=== PATIENT | male | born 1955 | race Asian ===

== ENCOUNTER 2019-06-06 18:07 | Inpatient (IN) | payer MEDICAID ==
[~2019-06-06] VITALS: Ht 172.7 cm; Wt 75.7 kg
[2019-06-06] MEDS ORDERED: SODIUM CHLORIDE 0.9% 1000ML BAG (SEPSIS BOLUS) IV ONE (18:30)
[2019-06-06] MEDS ORDERED: VANCOMYCIN 1 G PREMIX 200 ML IV ONE (18:30)
[2019-06-06] MEDS ORDERED: PIPERACILLIN/TAZ 3.375G PREMIX 50 ML IV ONE (18:30)
[2019-06-06 18:46] LABS: BASOPHILS % 0.5 % (0.0-2.0); EOSINOPHILS % 0.1 % (0.0-5.0); HEMATOCRIT. 45.5 % (42.0-52.0); HEMOGLOBIN. 14.8 g/dL (14.0-18.0); LYMPHOCYTES % 7.3 % (20.0-50.0); MEAN CORPUSCULAR HEMOGLOBIN 29.9 pg (28.0-32.0); MEAN CORPUSCULAR VOLUME 91.7 fL (80.0-94.0); MONOCYTES % 9.6 % (2.0-8.0); NEUTROPHILS % 82.5 % (40.0-76.0); PLATELET 340 x1000/uL (130-400); RED BLOOD CELL COUNT 4.97 mill/uL (4.7-6.1); RED CELL DISTRIBUTION WIDTH 14.9 % (11.6-14.6)
[2019-06-06 18:52] LABS: CHLORIDE 106 mEq/L (98-107)
[2019-06-06 18:54] LABS: PROTHROMBIN TIME 10.6 sec (9.6-11.0)
[2019-06-06 20:17] LABS: CLARITY URINE CLEAR (CLEAR); COLOR URINE DARK YELLOW (YELLOW); KETONES URINE 1+ (NEGATIVE); LEUKOCYTE ESTERASE URINE TRACE (NEGATIVE); NITRITE URINE NEGATIVE (NEGATIVE); OCCULT BLOOD URINE TRACE (NEGATIVE); PH URINE 5.5 (4.5-8.0); PROTEIN URINE 1+ (NEGATIVE); SPECIFIC GRAVITY URINE 1.027 (1.005-1.030)
[2019-06-06 20:51] LABS: BG BASE EXCESS -1.5 mmol/L (-2.0-2.0); BG BILEVEL POS AIRWAY PRESSURE 15/5; BG CARBOXYHEMOGLOBIN 0.8 % (0.5-1.5); BG DEOXYHEMOGLOBIN 5.7 % (0.0-5.0); BG FRACTION INSPIRED OXYGEN 50; BG HCO3 ACT 27.1 mmol/L (22.0-26.0); BG METHEMOGLOBIN 0.5 % (0.0-1.5); BG OXYGEN SATURATION 94.2 % (92.0-98.5); BG PCO2 63.1 mmHg (35.0-45.0); BG PH 7.251 (7.350-7.450); BG PO2 77.4 mmHg (75.0-100.0); BG SAMPLE SITE RIGHT BRACHIAL; BG TOTAL HEMOGLOBIN 14.5 g/dL (12.0-18.0); BG VENT MODE MASK - BIPAP; BG VENT RATE 12 set
[2019-06-06 22:03] LABS: BG BASE EXCESS -3.2 mmol/L (-2.0-2.0); BG BILEVEL POS AIRWAY PRESSURE 18/5; BG CARBOXYHEMOGLOBIN 0.9 % (0.5-1.5); BG DEOXYHEMOGLOBIN 1.8 % (0.0-5.0); BG FRACTION INSPIRED OXYGEN 60; BG HCO3 ACT 25.6 mmol/L (22.0-26.0); BG METHEMOGLOBIN 0.4 % (0.0-1.5); BG OXYGEN SATURATION 98.2 % (92.0-98.5); BG OXYHEMOGLOBIN 96.9 % (94.0-97.0); BG PH 7.226 (7.350-7.450); BG PO2 130.9 mmHg (75.0-100.0); BG SAMPLE SITE RIGHT RADIAL; BG TOTAL HEMOGLOBIN 13.7 g/dL (12.0-18.0); BG VENT MODE MASK - BIPAP; BG VENT RATE 18 set
[2019-06-07] VITALS (57 sets, daily range): BP systolic 74–187; BP diastolic 45–95
[2019-06-07] MEDS ORDERED: IOHEXOL-350 100 ML BOTTLE ONE (03:03)
[2019-06-07] MEDS ORDERED: ONDANSETRON HCL 4MG/2ML INJ IV PRN (08:30)
[2019-06-07] MEDS ORDERED: NOREPINEPHRINE 32 MG in DEXT 5% WATER 468 ML IV PRN (10:00)
[2019-06-07 10:08] LABS: BG CARBOXYHEMOGLOBIN 0.5 % (0.5-1.5); BG DEOXYHEMOGLOBIN 0.3 % (0.0-5.0); BG FRACTION INSPIRED OXYGEN 100; BG HCO3 ACT 26.1 mmol/L (22.0-26.0); BG METHEMOGLOBIN 0.5 % (0.0-1.5); BG OXYGEN SATURATION 99.7 % (92.0-98.5); BG OXYHEMOGLOBIN 98.7 % (94.0-97.0); BG PCO2 53.1 mmHg (35.0-45.0); BG PH 7.309 (7.350-7.450); BG PO2 505.7 mmHg (75.0-100.0); BG SAMPLE SITE RIGHT BRACHIAL; BG TIDAL VOLUME(mL) 500 mL; BG TOTAL HEMOGLOBIN 13.9 g/dL (12.0-18.0); BG VENT MODE VENT - A/C; BG VENT RATE 16 set
[2019-06-07] MEDS: PROPOFOL 10MG/ML 100ML 100 ML IV PRN ×2 (10:47→18:06)
[2019-06-07 11:25] LABS: *AMPHETAMINES SCREEN URINE NEGATIVE (NEGATIVE); *BARBITURATES SCREEN URINE NEGATIVE (NEGATIVE); *BENZODIAZEPINES SCREEN URINE NEGATIVE (NEGATIVE); *COCAINE SCREEN URINE NEGATIVE (NEGATIVE)
[2019-06-07 11:26] LABS: CANNABINOID URINE SCREEN NEGATIVE (NEGATIVE); METHADONE URINE SCREEN PRESUMTIVE POSITIVE (NEGATIVE); OPIATES URINE SCREEN NEGATIVE (NEGATIVE); PHENCYCLIDINE URINE SCREEN NEGATIVE (NEGATIVE)
[2019-06-07] MEDS: DEXT 5%/0.45% NACL 1000ML 1,000 ML IV SCH ×2 (11:44→22:29)
[2019-06-07] MEDS: FAMOTIDINE 20MG/2ML VIAL IV SCH (11:45)
[2019-06-07] MEDS: ENOXAPARIN 80MG/0.8ML SYR SUBCUT SCH ×2 (11:45→21:19)
[2019-06-07] MEDS: VANCOMYCIN 1 G PREMIX 200 ML IV SCH ×2 (11:45→22:29)
[2019-06-07] MEDS: ACETYLCYSTEINE 100MG/ML 10% VIAL 4ML INH SCH ×2 (12:08→23:58)
[2019-06-07] MEDS: IPRATROPIUM/ALBUTEROL 0.5-3(2.5)MG/3ML NEB HHN SCH ×4 (12:09→23:57)
[2019-06-07] MEDS: PIPERACILLIN/TAZOBACTAM 3.375 G in DEXT 5% WATER 100 ML IV SCH ×2 (12:23→17:53)
[2019-06-07] MEDS: AZITHROMYCIN 500 MG in DEXT 5% WATER 250 ML IV SCH (12:23)
[2019-06-07] MEDS ORDERED: LIDOCAINE HCL 1% 20ML VIAL (Pyxis) INJ ONE (13:04)
[2019-06-07 13:52] LABS: HEPATITIS B SURFACE ANTIGEN NEGATIVE
[2019-06-07 14:22] LABS: HEPATITIS A AB IGM NEGATIVE (NEGATIVE)
[2019-06-08] VITALS (99 sets, daily range): BP systolic 74–169; BP diastolic 26–95
[2019-06-08] MEDS: PIPERACILLIN/TAZOBACTAM 3.375 G in DEXT 5% WATER 100 ML IV SCH ×4 (00:01→20:56)
[2019-06-08] MEDS: PROPOFOL 10MG/ML 100ML 100 ML IV PRN ×4 (01:22→18:06)
[2019-06-08] MEDS: IPRATROPIUM/ALBUTEROL 0.5-3(2.5)MG/3ML NEB HHN SCH ×5 (03:56→20:29)
[2019-06-08 06:11] LABS: BASOPHILS % 0.1 % (0.0-2.0); EOSINOPHILS % 1.1 % (0.0-5.0); HEMATOCRIT. 36.8 % (42.0-52.0); HEMOGLOBIN. 12.1 g/dL (14.0-18.0); LYMPHOCYTES % 11.1 % (20.0-50.0); MEAN CORPUSCULAR HEMOGLOBIN 30.3 pg (28.0-32.0); MEAN CORPUSCULAR VOLUME 92.3 fL (80.0-94.0); MONOCYTES % 9.8 % (2.0-8.0); NEUTROPHILS % 77.9 % (40.0-76.0); PLATELET 230 x1000/uL (130-400); RED BLOOD CELL COUNT 3.98 mill/uL (4.7-6.1); RED CELL DISTRIBUTION WIDTH 14.8 % (11.6-14.6)
[2019-06-08 06:12] LABS: CHLORIDE 108 mEq/L (98-107)
[2019-06-08] MEDS: FAMOTIDINE 20MG/2ML VIAL IV SCH (08:02)
[2019-06-08] MEDS: ENOXAPARIN 80MG/0.8ML SYR SUBCUT SCH ×2 (08:03→21:31)
[2019-06-08] MEDS: ACETYLCYSTEINE 100MG/ML 10% VIAL 4ML INH SCH ×2 (08:24→16:19)
[2019-06-08 09:16] LABS: BG BASE EXCESS 1.7 mmol/L (-2.0-2.0); BG CARBOXYHEMOGLOBIN 0.5 % (0.5-1.5); BG DEOXYHEMOGLOBIN 1.1 % (0.0-5.0); BG FRACTION INSPIRED OXYGEN 40; BG HCO3 ACT 25.1 mmol/L (22.0-26.0); BG METHEMOGLOBIN 0.2 % (0.0-1.5); BG OXYGEN SATURATION 98.9 % (92.0-98.5); BG OXYHEMOGLOBIN 98.2 % (94.0-97.0); BG PCO2 35.4 mmHg (35.0-45.0); BG PH 7.468 (7.350-7.450); BG PO2 135.9 mmHg (75.0-100.0); BG SAMPLE SITE RIGHT RADIAL; BG TIDAL VOLUME(mL) 500 mL; BG TOTAL HEMOGLOBIN 12.4 g/dL (12.0-18.0); BG VENT MODE VENT - A/C; BG VENT RATE 18 set
[2019-06-08] MEDS: VANCOMYCIN 1 G PREMIX 200 ML IV SCH ×2 (11:08→23:02)
[2019-06-08] MEDS ORDERED: HYDROCODONE/ACETAMINOPHEN 5/325MG TABLET PO PRN (11:45)
[2019-06-08] MEDS: AZITHROMYCIN 500 MG in DEXT 5% WATER 250 ML IV SCH (12:34)
[2019-06-08] MEDS: DEXT 5%/0.45% NACL 1000ML 1,000 ML IV SCH (12:35)
[2019-06-08] MEDS: MIDODRINE HCL 5MG TABLET PO SCH ×2 (12:35→18:13)
[2019-06-08] MEDS ORDERED: POTASSIUM CHLORIDE INJ 40 MEQ in DEXT 5% WATER 250 ML IV NR (13:00)
[2019-06-08] MEDS: SODIUM CHLORIDE 3% FOR INH 4ML UD NEB INH SCH ×2 (14:00→18:00)
[2019-06-09] VITALS (79 sets, daily range): BP systolic 80–196; BP diastolic 40–140
[2019-06-09] MEDS: PROPOFOL 10MG/ML 100ML 100 ML IV PRN ×3 (00:03→22:55)
[2019-06-09] MEDS: IPRATROPIUM/ALBUTEROL 0.5-3(2.5)MG/3ML NEB HHN SCH ×6 (00:28→20:26)
[2019-06-09] MEDS: ACETYLCYSTEINE 100MG/ML 10% VIAL 4ML INH SCH ×2 (00:28→08:57)
[2019-06-09] MEDS: DEXT 5%/0.45% NACL 1000ML 1,000 ML IV SCH ×2 (05:28→15:05)
[2019-06-09] MEDS: PIPERACILLIN/TAZOBACTAM 3.375 G in DEXT 5% WATER 100 ML IV SCH (05:36)
[2019-06-09 05:51] LABS: CHLORIDE 108 mEq/L (98-107)
[2019-06-09 05:52] LABS: HEMATOCRIT. 35.4 % (42.0-52.0); HEMOGLOBIN. 11.9 g/dL (14.0-18.0); MEAN CORPUSCULAR HEMOGLOBIN 30.3 pg (28.0-32.0); MEAN CORPUSCULAR VOLUME 90.1 fL (80.0-94.0); MEAN PLATELET VOLUME 7.9 fl (7.4-10.4); PLATELET 227 x1000/uL (130-400); RED BLOOD CELL COUNT 3.93 mill/uL (4.7-6.1); RED CELL DISTRIBUTION WIDTH 14.7 % (11.6-14.6)
[2019-06-09] MEDS ORDERED: POTASSIUM CHLORIDE INJ 40 MEQ in DEXT 5% WATER 500 ML IV ONE (06:15)
[2019-06-09 08:07] LABS: BG BASE EXCESS 1.8 mmol/L (-2.0-2.0); BG CARBOXYHEMOGLOBIN 0.9 % (0.5-1.5); BG DEOXYHEMOGLOBIN 1.5 % (0.0-5.0); BG HCO3 ACT 26.7 mmol/L (22.0-26.0); BG METHEMOGLOBIN 0.7 % (0.0-1.5); BG OXYGEN SATURATION 98.5 % (92.0-98.5); BG OXYHEMOGLOBIN 96.9 % (94.0-97.0); BG PH 7.411 (7.350-7.450); BG PO2 119.4 mmHg (75.0-100.0); BG SAMPLE SITE RIGHT BRACHIAL; BG TIDAL VOLUME(mL) 500 mL; BG VENT MODE VENT - A/C; BG VENT RATE 14 set
[2019-06-09 09:10] LABS: PLATELET ESTIMATE NORMAL
[2019-06-09] MEDS: FAMOTIDINE 20MG/2ML VIAL IV SCH (09:20)
[2019-06-09] MEDS: MIDODRINE HCL 5MG TABLET PO SCH ×3 (09:21→17:35)
[2019-06-09] MEDS: ENOXAPARIN 80MG/0.8ML SYR SUBCUT SCH ×2 (09:21→21:10)
[2019-06-09] MEDS ORDERED: POTASSIUM CHLORIDE 20MEQ TABLET SR PO SCH (10:45)
[2019-06-09] MEDS: VANCOMYCIN 1 G PREMIX 200 ML IV SCH ×2 (11:00→22:54)
[2019-06-09] MEDS: AZITHROMYCIN 500 MG in DEXT 5% WATER 250 ML IV SCH (12:00)
[2019-06-09] MEDS: MORPHINE SULFATE 2 MG/ML CPJ (NOT FOR IM USE) IV PRN (14:09)
[2019-06-10] VITALS (96 sets, daily range): BP systolic 82–177; BP diastolic 51–89
[2019-06-10] MEDS: ACETYLCYSTEINE 100MG/ML 10% VIAL 4ML INH SCH ×2 (00:19→08:48)
[2019-06-10] MEDS: IPRATROPIUM/ALBUTEROL 0.5-3(2.5)MG/3ML NEB HHN SCH ×6 (00:19→20:10)
[2019-06-10] MEDS: DEXT 5%/0.45% NACL 1000ML 1,000 ML IV SCH ×2 (04:20→18:09)
[2019-06-10] MEDS: PIPERACILLIN/TAZOBACTAM 3.375 G in DEXT 5% WATER 100 ML IV SCH ×5 (05:09→18:09)
[2019-06-10] MEDS: PROPOFOL 10MG/ML 100ML 100 ML IV PRN ×3 (05:22→19:40)
[2019-06-10 05:50] LABS: HEMATOCRIT. 38.6 % (42.0-52.0); HEMOGLOBIN. 12.7 g/dL (14.0-18.0); MEAN CORPUSCULAR VOLUME 91.1 fL (80.0-94.0); MEAN PLATELET VOLUME 8.1 fl (7.4-10.4); PLATELET 227 x1000/uL (130-400); RED BLOOD CELL COUNT 4.23 mill/uL (4.7-6.1)
[2019-06-10 07:41] LABS: BG BASE EXCESS -1.4 mmol/L (-2.0-2.0); BG CARBOXYHEMOGLOBIN 0.1 % (0.5-1.5); BG DEOXYHEMOGLOBIN 1.8 % (0.0-5.0); BG HCO3 ACT 23.9 mmol/L (22.0-26.0); BG METHEMOGLOBIN 0.3 % (0.0-1.5); BG OXYGEN SATURATION 98.2 % (92.0-98.5); BG OXYHEMOGLOBIN 97.8 % (94.0-97.0); BG PCO2 42.6 mmHg (35.0-45.0); BG PH 7.367 (7.350-7.450); BG PO2 121.3 mmHg (75.0-100.0); BG SAMPLE SITE RIGHT BRACHIAL; BG TIDAL VOLUME(mL) 500 mL; BG TOTAL HEMOGLOBIN 13.2 g/dL (12.0-18.0); BG VENT MODE VENT - A/C; BG VENT RATE 14 set
[2019-06-10 08:04] LABS: CHLORIDE 109 mEq/L (98-107)
[2019-06-10] MEDS: MIDODRINE HCL 5MG TABLET PO SCH ×3 (09:51→17:00)
[2019-06-10] MEDS: ENOXAPARIN 80MG/0.8ML SYR SUBCUT SCH ×2 (09:51→20:51)
[2019-06-10] MEDS: FAMOTIDINE 20MG/2ML VIAL IV SCH (09:51)
[2019-06-10 10:43] LABS: PLATELET ESTIMATE NORMAL
[2019-06-10] MEDS: VANCOMYCIN 1 G PREMIX 200 ML IV SCH ×2 (11:05→22:14)
[2019-06-10] MEDS ORDERED: POTASSIUM CHLORIDE 20MEQ TABLET SR PO SCH (12:00)
[2019-06-10] MEDS: AZITHROMYCIN 500 MG in DEXT 5% WATER 250 ML IV SCH (12:10)
[2019-06-11] VITALS (95 sets, daily range): BP systolic 83–175; BP diastolic 52–144
[2019-06-11] MEDS: PIPERACILLIN/TAZOBACTAM 3.375 G in DEXT 5% WATER 100 ML IV SCH ×4 (00:04→18:04)
[2019-06-11] MEDS: IPRATROPIUM/ALBUTEROL 0.5-3(2.5)MG/3ML NEB HHN SCH ×6 (00:09→20:21)
[2019-06-11] MEDS: ACETYLCYSTEINE 100MG/ML 10% VIAL 4ML INH SCH ×3 (00:09→16:04)
[2019-06-11] MEDS: PROPOFOL 10MG/ML 100ML 100 ML IV PRN ×3 (04:16→23:12)
[2019-06-11 05:49] LABS: BASOPHILS % 0.2 % (0.0-2.0); EOSINOPHILS % 2.5 % (0.0-5.0); HEMATOCRIT. 37.8 % (42.0-52.0); HEMOGLOBIN. 12.6 g/dL (14.0-18.0); LYMPHOCYTES % 12.8 % (20.0-50.0); MEAN CORPUSCULAR HEMOGLOBIN 30.2 pg (28.0-32.0); MEAN CORPUSCULAR VOLUME 90.8 fL (80.0-94.0); MEAN PLATELET VOLUME 7.9 fl (7.4-10.4); MONOCYTES % 13.3 % (2.0-8.0); NEUTROPHILS % 71.2 % (40.0-76.0); PLATELET 231 x1000/uL (130-400); RED BLOOD CELL COUNT 4.17 mill/uL (4.7-6.1); RED CELL DISTRIBUTION WIDTH 15.3 % (11.6-14.6)
[2019-06-11 05:55] LABS: CHLORIDE 109 mEq/L (98-107)
[2019-06-11 08:03] LABS: BG BASE EXCESS -1.8 mmol/L (-2.0-2.0); BG CARBOXYHEMOGLOBIN 0.1 % (0.5-1.5); BG DEOXYHEMOGLOBIN 1.5 % (0.0-5.0); BG FRACTION INSPIRED OXYGEN 40; BG HCO3 ACT 23.8 mmol/L (22.0-26.0); BG METHEMOGLOBIN 0.4 % (0.0-1.5); BG OXYGEN SATURATION 98.5 % (92.0-98.5); BG PCO2 43.9 mmHg (35.0-45.0); BG PH 7.352 (7.350-7.450); BG PO2 132.5 mmHg (75.0-100.0); BG SAMPLE SITE RIGHT RADIAL; BG TIDAL VOLUME(mL) 500 mL; BG TOTAL HEMOGLOBIN 12.7 g/dL (12.0-18.0); BG VENT MODE VENT - A/C; BG VENT RATE 14 set
[2019-06-11] MEDS: FAMOTIDINE 20MG/2ML VIAL IV SCH (08:41)
[2019-06-11] MEDS: ENOXAPARIN 80MG/0.8ML SYR SUBCUT SCH ×2 (08:41→20:52)
[2019-06-11] MEDS: MIDODRINE HCL 5MG TABLET PO SCH (08:41)
[2019-06-11] MEDS: VANCOMYCIN 1 G PREMIX 200 ML IV SCH ×2 (10:09→23:04)
[2019-06-11] MEDS: MORPHINE SULFATE 2 MG/ML CPJ (NOT FOR IM USE) IV PRN (10:10)
[2019-06-11] MEDS: DEXT 5%/0.45% NACL 1000ML 1,000 ML IV SCH ×2 (10:10→14:04)
[2019-06-11] MEDS ORDERED: POTASSIUM CHLORIDE 20MEQ TABLET SR PO NR (10:15)
[2019-06-11] MEDS: QUETIAPINE FUMARATE 25MG TABLET NG SCH ×2 (12:29→18:04)
[2019-06-11] MEDS: AZITHROMYCIN 500 MG in DEXT 5% WATER 250 ML IV SCH (12:31)
[2019-06-12] VITALS (88 sets, daily range): BP systolic 94–178; BP diastolic 57–97
[2019-06-12] MEDS: PIPERACILLIN/TAZOBACTAM 3.375 G in DEXT 5% WATER 100 ML IV SCH ×5 (00:32→23:48)
[2019-06-12] MEDS: IPRATROPIUM/ALBUTEROL 0.5-3(2.5)MG/3ML NEB HHN SCH ×5 (00:53→21:11)
[2019-06-12] MEDS: ACETYLCYSTEINE 100MG/ML 10% VIAL 4ML INH SCH ×3 (00:53→21:15)
[2019-06-12] MEDS: PROPOFOL 10MG/ML 100ML 100 ML IV PRN (05:45)
[2019-06-12 07:53] LABS: HIV SCREEN 4G Non Reactive (Non Reactive)
[2019-06-12 08:54] LABS: BASOPHILS % 0.4 % (0.0-2.0); EOSINOPHILS % 3.3 % (0.0-5.0); HEMATOCRIT. 35.5 % (42.0-52.0); HEMOGLOBIN. 11.9 g/dL (14.0-18.0); LYMPHOCYTES % 14.1 % (20.0-50.0); MEAN CORPUSCULAR HEMOGLOBIN 30.3 pg (28.0-32.0); MEAN CORPUSCULAR VOLUME 90.3 fL (80.0-94.0); MEAN PLATELET VOLUME 8.1 fl (7.4-10.4); MONOCYTES % 13.2 % (2.0-8.0); PLATELET 223 x1000/uL (130-400); RED BLOOD CELL COUNT 3.93 mill/uL (4.7-6.1); RED CELL DISTRIBUTION WIDTH 15.2 % (11.6-14.6)
[2019-06-12 08:55] LABS: CHLORIDE 112 mEq/L (98-107)
[2019-06-12] MEDS: FAMOTIDINE 20MG/2ML VIAL IV SCH (09:00)
[2019-06-12] MEDS: QUETIAPINE FUMARATE 25MG TABLET NG SCH ×2 (09:00→18:20)
[2019-06-12] MEDS: ENOXAPARIN 80MG/0.8ML SYR SUBCUT SCH ×2 (09:00→20:29)
[2019-06-12] MEDS ORDERED: POTASSIUM CHLORIDE 20MEQ TABLET SR PO SCH (09:15)
[2019-06-12 09:26] LABS: BG BASE EXCESS 1.5 mmol/L (-2.0-2.0); BG CARBOXYHEMOGLOBIN 0.5 % (0.5-1.5); BG DEOXYHEMOGLOBIN 2.5 % (0.0-5.0); BG FRACTION INSPIRED OXYGEN 30; BG HCO3 ACT 26.7 mmol/L (22.0-26.0); BG METHEMOGLOBIN 0.2 % (0.0-1.5); BG OXYGEN SATURATION 97.5 % (92.0-98.5); BG OXYHEMOGLOBIN 96.8 % (94.0-97.0); BG PCO2 44.4 mmHg (35.0-45.0); BG PH 7.397 (7.350-7.450); BG PO2 100.9 mmHg (75.0-100.0); BG SAMPLE SITE RIGHT RADIAL; BG TIDAL VOLUME(mL) 500 mL; BG TOTAL HEMOGLOBIN 12.7 g/dL (12.0-18.0); BG VENT MODE VENT - A/C; BG VENT RATE 14 set
[2019-06-12] MEDS: VANCOMYCIN 1 G PREMIX 200 ML IV SCH ×2 (11:29→22:23)
[2019-06-12] MEDS: AZITHROMYCIN 500 MG in DEXT 5% WATER 250 ML IV SCH (12:16)
[2019-06-12 13:05] LABS: BG BASE EXCESS 2.9 mmol/L (-2.0-2.0); BG CARBOXYHEMOGLOBIN 0.4 % (0.5-1.5); BG DEOXYHEMOGLOBIN 4.9 % (0.0-5.0); BG FRACTION INSPIRED OXYGEN 30; BG METHEMOGLOBIN 0.3 % (0.0-1.5); BG OXYGEN SATURATION 95.1 % (92.0-98.5); BG OXYHEMOGLOBIN 94.4 % (94.0-97.0); BG PCO2 45.1 mmHg (35.0-45.0); BG PH 7.411 (7.350-7.450); BG PO2 74.7 mmHg (75.0-100.0); BG PRESSURE SUPPORT 8; BG SAMPLE SITE RIGHT RADIAL; BG TOTAL HEMOGLOBIN 12.9 g/dL (12.0-18.0); BG VENT MODE VENT - CPAP
[2019-06-12] MEDS ORDERED: MORPHINE SULFATE 2 MG/ML CPJ (NOT FOR IM USE) IV PRN (14:30)
[2019-06-12] MEDS: LORAZEPAM 2MG/ML CPJ IV PRN ×2 (16:05→22:43)
[2019-06-12] MEDS: DEXT 5%/0.45% NACL 1000ML 1,000 ML IV SCH ×2 (16:06→22:23)
[2019-06-13] VITALS (35 sets, daily range): BP systolic 109–177; BP diastolic 69–105
[2019-06-13] MEDS: IPRATROPIUM/ALBUTEROL 0.5-3(2.5)MG/3ML NEB HHN SCH ×5 (00:48→20:58)
[2019-06-13] MEDS: CLONIDINE 0.1MG TABLET NG PRN ×2 (04:44→10:32)
[2019-06-13 05:35] LABS: CHLORIDE 108 mEq/L (98-107)
[2019-06-13 05:36] LABS: BASOPHILS % 0.7 % (0.0-2.0); EOSINOPHILS % 3.4 % (0.0-5.0); HEMATOCRIT. 38.1 % (42.0-52.0); HEMOGLOBIN. 12.7 g/dL (14.0-18.0); LYMPHOCYTES % 15.4 % (20.0-50.0); MEAN CORPUSCULAR VOLUME 90.3 fL (80.0-94.0); MEAN PLATELET VOLUME 7.9 fl (7.4-10.4); NEUTROPHILS % 67.5 % (40.0-76.0); PLATELET 213 x1000/uL (130-400); RED BLOOD CELL COUNT 4.21 mill/uL (4.7-6.1); RED CELL DISTRIBUTION WIDTH 15.3 % (11.6-14.6)
[2019-06-13] MEDS: PIPERACILLIN/TAZOBACTAM 3.375 G in DEXT 5% WATER 100 ML IV SCH ×3 (05:40→17:25)
[2019-06-13 05:43] LABS: PHOSPHORUS 3.4 mg/dL (2.5-4.9)
[2019-06-13] MEDS: DOCUSATE SODIUM 250MG CAPSULE PO SCH (09:00)
[2019-06-13] MEDS: FAMOTIDINE 20MG/2ML VIAL IV SCH (09:09)
[2019-06-13] MEDS: ENOXAPARIN 80MG/0.8ML SYR SUBCUT SCH ×2 (09:10→21:50)
[2019-06-13] MEDS: QUETIAPINE FUMARATE 25MG TABLET NG SCH ×2 (10:33→17:26)
[2019-06-13] MEDS ORDERED: POTASSIUM CHLORIDE 20MEQ/PACKET PO SCH (11:00)
[2019-06-13] MEDS: SODIUM CHLORIDE 3% FOR INH 4ML UD NEB INH SCH ×2 (12:00→18:00)
[2019-06-13] MEDS ORDERED: METH-611 PO (12:18)
[2019-06-13] MEDS: DEXT 5%/0.45% NACL 1000ML 1,000 ML IV SCH (12:25)
[2019-06-13] MEDS: ACETYLCYSTEINE 100MG/ML 10% VIAL 4ML INH SCH (12:30)
[2019-06-13] MEDS: AZITHROMYCIN 500 MG in DEXT 5% WATER 250 ML IV SCH (12:34)
[2019-06-13] MEDS: VANCOMYCIN 1 G PREMIX 200 ML IV SCH ×2 (12:43→23:42)
[2019-06-13] MEDS: LORAZEPAM 2MG/ML CPJ IV PRN (19:46)
[2019-06-14] VITALS (26 sets, daily range): BP systolic 77–164; BP diastolic 46–117
[2019-06-14] MEDS: ACETYLCYSTEINE 100MG/ML 10% VIAL 4ML INH SCH ×2 (00:23→09:17)
[2019-06-14] MEDS: IPRATROPIUM/ALBUTEROL 0.5-3(2.5)MG/3ML NEB HHN SCH ×7 (00:23→20:40)
[2019-06-14] MEDS: PIPERACILLIN/TAZOBACTAM 3.375 G in DEXT 5% WATER 100 ML IV SCH ×4 (00:30→17:42)
[2019-06-14] MEDS: DEXT 5%/0.45% NACL 1000ML 1,000 ML IV SCH ×2 (01:02→14:00)
[2019-06-14] MEDS: SODIUM CHLORIDE 3% FOR INH 4ML UD NEB INH SCH (04:20)
[2019-06-14] MEDS: LORAZEPAM 2MG/ML CPJ IV PRN ×2 (04:57→08:40)
[2019-06-14 05:06] LABS: BASOPHILS % 0.5 % (0.0-2.0); EOSINOPHILS % 3.9 % (0.0-5.0); HEMATOCRIT. 38.2 % (42.0-52.0); HEMOGLOBIN. 12.9 g/dL (14.0-18.0); MEAN CORPUSCULAR HEMOGLOBIN 30.3 pg (28.0-32.0); MEAN CORPUSCULAR VOLUME 89.9 fL (80.0-94.0); NEUTROPHILS % 66.6 % (40.0-76.0); PLATELET 228 x1000/uL (130-400); RED BLOOD CELL COUNT 4.26 mill/uL (4.7-6.1); RED CELL DISTRIBUTION WIDTH 15.4 % (11.6-14.6)
[2019-06-14 05:14] LABS: CHLORIDE 103 mEq/L (98-107)
[2019-06-14 08:10] LABS: BG BASE EXCESS 2.8 mmol/L (-2.0-2.0); BG CARBOXYHEMOGLOBIN 0.5 % (0.5-1.5); BG DEOXYHEMOGLOBIN 2.2 % (0.0-5.0); BG FRACTION INSPIRED OXYGEN 30; BG HCO3 ACT 27.9 mmol/L (22.0-26.0); BG METHEMOGLOBIN 0.3 % (0.0-1.5); BG OXYGEN SATURATION 97.8 % (92.0-98.5); BG PCO2 44.6 mmHg (35.0-45.0); BG PH 7.414 (7.350-7.450); BG PO2 104.1 mmHg (75.0-100.0); BG PRESSURE SUPPORT 10; BG SAMPLE SITE RIGHT RADIAL; BG TIDAL VOLUME(mL) 500 mL; BG VENT MODE VENT - SIMV; BG VENT RATE 6 set
[2019-06-14] MEDS: QUETIAPINE FUMARATE 25MG TABLET NG SCH ×2 (09:09→16:10)
[2019-06-14] MEDS: FAMOTIDINE 20MG/2ML VIAL IV SCH (09:09)
[2019-06-14] MEDS: ENOXAPARIN 80MG/0.8ML SYR SUBCUT SCH ×2 (09:10→22:05)
[2019-06-14] MEDS: DOCUSATE SODIUM 250MG CAPSULE PO SCH (09:10)
[2019-06-14] MEDS: VANCOMYCIN 1 G PREMIX 200 ML IV SCH (10:36)
[2019-06-14] MEDS: AZITHROMYCIN 500 MG in DEXT 5% WATER 250 ML IV SCH (12:02)
[2019-06-14 12:58] LABS: BG CARBOXYHEMOGLOBIN 0.5 % (0.5-1.5); BG CPAP (cmH2O) 0 cm(H2O); BG DEOXYHEMOGLOBIN 1.8 % (0.0-5.0); BG HCO3 ACT 29.9 mmol/L (22.0-26.0); BG METHEMOGLOBIN 0.2 % (0.0-1.5); BG OXYGEN SATURATION 98.2 % (92.0-98.5); BG OXYHEMOGLOBIN 97.5 % (94.0-97.0); BG PCO2 50.7 mmHg (35.0-45.0); BG PH 7.389 (7.350-7.450); BG PO2 116.5 mmHg (75.0-100.0); BG SAMPLE SITE RIGHT BRACHIAL; BG TOTAL HEMOGLOBIN 12.8 g/dL (12.0-18.0); BG VENT MODE VENT - CPAP
[2019-06-14] MEDS: METHADONE HCL 10MG TABLET PO SCH (16:10)
[2019-06-15] VITALS (26 sets, daily range): BP systolic 80–153; BP diastolic 56–105
[2019-06-15] MEDS: IPRATROPIUM/ALBUTEROL 0.5-3(2.5)MG/3ML NEB HHN SCH ×6 (00:12→21:01)
[2019-06-15] MEDS: ACETYLCYSTEINE 100MG/ML 10% VIAL 4ML INH SCH ×3 (00:13→16:04)
[2019-06-15] MEDS: SODIUM CHLORIDE 3% FOR INH 4ML UD NEB INH SCH (04:11)
[2019-06-15 05:45] LABS: BASOPHILS % 0.5 % (0.0-2.0); EOSINOPHILS % 3.7 % (0.0-5.0); HEMATOCRIT. 36.1 % (42.0-52.0); HEMOGLOBIN. 12.1 g/dL (14.0-18.0); LYMPHOCYTES % 17.6 % (20.0-50.0); MEAN CORPUSCULAR HEMOGLOBIN 30.3 pg (28.0-32.0); MEAN CORPUSCULAR VOLUME 90.1 fL (80.0-94.0); MEAN PLATELET VOLUME 8.2 fl (7.4-10.4); MONOCYTES % 10.3 % (2.0-8.0); NEUTROPHILS % 67.9 % (40.0-76.0); PLATELET 244 x1000/uL (130-400); RED BLOOD CELL COUNT 4.01 mill/uL (4.7-6.1)
[2019-06-15 05:47] LABS: CHLORIDE 104 mEq/L (98-107)
[2019-06-15] MEDS: FAMOTIDINE 20MG/2ML VIAL IV SCH (08:28)
[2019-06-15] MEDS: QUETIAPINE FUMARATE 25MG TABLET NG SCH (08:28)
[2019-06-15] MEDS: DOCUSATE SODIUM SUGAR FREE 100MG/10ML UDC NG SCH (08:29)
[2019-06-15] MEDS: METHADONE HCL 10MG TABLET PO SCH (08:29)
[2019-06-15] MEDS: DEXT 5%/0.45% NACL 1000ML 1,000 ML IV SCH (08:30)
[2019-06-15] MEDS: ENOXAPARIN 80MG/0.8ML SYR SUBCUT SCH (08:30)
[2019-06-15 09:55] LABS: BG CARBOXYHEMOGLOBIN 0.7 % (0.5-1.5); BG DEOXYHEMOGLOBIN 1.6 % (0.0-5.0); BG FRACTION INSPIRED OXYGEN 50; BG HCO3 ACT 32.9 mmol/L (22.0-26.0); BG METHEMOGLOBIN 0.4 % (0.0-1.5); BG OXYGEN SATURATION 98.4 % (92.0-98.5); BG OXYHEMOGLOBIN 97.3 % (94.0-97.0); BG PCO2 64.6 mmHg (35.0-45.0); BG PH 7.325 (7.350-7.450); BG PO2 129.2 mmHg (75.0-100.0); BG SAMPLE SITE RIGHT RADIAL; BG TOTAL HEMOGLOBIN 12.9 g/dL (12.0-18.0); BG VENT MODE MASK - AEROSOL
[2019-06-16] VITALS (29 sets, daily range): BP systolic 93–163; BP diastolic 47–119
[2019-06-16] MEDS: ACETYLCYSTEINE 100MG/ML 10% VIAL 4ML INH SCH ×3 (00:40→16:06)
[2019-06-16] MEDS: IPRATROPIUM/ALBUTEROL 0.5-3(2.5)MG/3ML NEB HHN SCH ×6 (00:40→20:24)
[2019-06-16 05:29] LABS: BASOPHILS % 0.9 % (0.0-2.0); EOSINOPHILS % 3.6 % (0.0-5.0); HEMOGLOBIN. 11.7 g/dL (14.0-18.0); LYMPHOCYTES % 19.8 % (20.0-50.0); MEAN CORPUSCULAR HEMOGLOBIN 30.4 pg (28.0-32.0); MEAN PLATELET VOLUME 8.4 fl (7.4-10.4); MONOCYTES % 10.3 % (2.0-8.0); NEUTROPHILS % 65.4 % (40.0-76.0); PLATELET 257 x1000/uL (130-400); RED BLOOD CELL COUNT 3.85 mill/uL (4.7-6.1); RED CELL DISTRIBUTION WIDTH 14.9 % (11.6-14.6)
[2019-06-16 05:30] LABS: CHLORIDE 103 mEq/L (98-107)
[2019-06-16] MEDS: FAMOTIDINE 20MG/2ML VIAL IV SCH (09:51)
[2019-06-16] MEDS: SODIUM CHLORIDE 0.9% 1,000 ML IV SCH (12:30)
[2019-06-16] MEDS: METHADONE HCL 10MG TABLET PO SCH (14:44)
[2019-06-16] MEDS: LORAZEPAM 2MG/ML CPJ IV PRN ×2 (15:58→23:36)
[2019-06-16] MEDS: DOCUSATE SODIUM SUGAR FREE 100MG/10ML UDC NG SCH (15:59)
[2019-06-17] VITALS (31 sets, daily range): BP systolic 112–159; BP diastolic 58–108
[2019-06-17] MEDS: IPRATROPIUM/ALBUTEROL 0.5-3(2.5)MG/3ML NEB HHN SCH ×5 (04:20→21:21)
[2019-06-17 05:24] LABS: BASOPHILS % 0.6 % (0.0-2.0); EOSINOPHILS % 3.1 % (0.0-5.0); HEMATOCRIT. 35.1 % (42.0-52.0); HEMOGLOBIN. 11.7 g/dL (14.0-18.0); LYMPHOCYTES % 24.5 % (20.0-50.0); MEAN CORPUSCULAR VOLUME 90.4 fL (80.0-94.0); MEAN PLATELET VOLUME 8.1 fl (7.4-10.4); MONOCYTES % 10.8 % (2.0-8.0); PLATELET 311 x1000/uL (130-400); RED BLOOD CELL COUNT 3.89 mill/uL (4.7-6.1); RED CELL DISTRIBUTION WIDTH 14.6 % (11.6-14.6)
[2019-06-17 05:29] LABS: CHLORIDE 104 mEq/L (98-107)
[2019-06-17] MEDS: SODIUM CHLORIDE 0.9% 1,000 ML IV SCH (05:57)
[2019-06-17 08:36] LABS: BG BASE EXCESS 0.7 mmol/L (-2.0-2.0); BG CARBOXYHEMOGLOBIN 1.1 % (0.5-1.5); BG DEOXYHEMOGLOBIN 1.5 % (0.0-5.0); BG FRACTION INSPIRED OXYGEN 30; BG HCO3 ACT 27.5 mmol/L (22.0-26.0); BG METHEMOGLOBIN 0.4 % (0.0-1.5); BG OXYGEN SATURATION 98.5 % (92.0-98.5); BG PH 7.325 (7.350-7.450); BG SAMPLE SITE RIGHT RADIAL; BG TOTAL HEMOGLOBIN 12.2 g/dL (12.0-18.0); BG VENT MODE NASAL CANNULA
[2019-06-17] MEDS: ACETYLCYSTEINE 100MG/ML 10% VIAL 4ML INH SCH ×2 (08:38→15:53)
[2019-06-17] MEDS: FAMOTIDINE 20MG/2ML VIAL IV SCH (08:54)
[2019-06-17] MEDS: DOCUSATE SODIUM SUGAR FREE 100MG/10ML UDC NG SCH (09:00)
[2019-06-17] MEDS: METHADONE HCL 10MG TABLET PO SCH (09:00)
[2019-06-17] MEDS: DEXT 5%/0.45% NACL 1000ML 1,000 ML IV SCH (10:46)
[2019-06-17] MEDS: LORAZEPAM 2MG/ML CPJ IV PRN (21:40)
[2019-06-18] VITALS (11 sets, daily range): BP systolic 103–135; BP diastolic 62–113
[2019-06-18] MEDS: IPRATROPIUM/ALBUTEROL 0.5-3(2.5)MG/3ML NEB HHN SCH ×3 (01:21→08:59)
[2019-06-18] MEDS: ACETYLCYSTEINE 100MG/ML 10% VIAL 4ML INH SCH ×3 (01:21→14:24)
[2019-06-18] MEDS: DEXT 5%/0.45% NACL 1000ML 1,000 ML IV SCH (06:45)
[2019-06-18 07:53] LABS: CHLORIDE 102 mEq/L (98-107)
[2019-06-18 08:31] LABS: BASOPHILS % 0.4 % (0.0-2.0); EOSINOPHILS % 0.2 % (0.0-5.0); HEMATOCRIT. 34.8 % (42.0-52.0); HEMOGLOBIN. 11.5 g/dL (14.0-18.0); LYMPHOCYTES % 9.2 % (20.0-50.0); MEAN CORPUSCULAR HEMOGLOBIN 29.7 pg (28.0-32.0); MEAN CORPUSCULAR VOLUME 90.1 fL (80.0-94.0); MEAN PLATELET VOLUME 8.4 fl (7.4-10.4); MONOCYTES % 6.7 % (2.0-8.0); NEUTROPHILS % 83.5 % (40.0-76.0); PLATELET 385 x1000/uL (130-400); RED BLOOD CELL COUNT 3.87 mill/uL (4.7-6.1); RED CELL DISTRIBUTION WIDTH 14.7 % (11.6-14.6)
[2019-06-18] MEDS: DOCUSATE SODIUM SUGAR FREE 100MG/10ML UDC NG SCH (09:00)
[2019-06-18] MEDS: FAMOTIDINE 20MG/2ML VIAL IV SCH (09:47)
[2019-06-18] MEDS: METHADONE HCL 10MG TABLET PO SCH (11:36)
[2019-06-18] MEDS: ALBUTEROL (0.083%) 2.5MG/3ML NEB HHN SCH ×2 (14:25→20:26)
[2019-06-18] MEDS: LORAZEPAM 2MG/ML CPJ IV PRN (19:34)
[2019-06-18] MEDS: GUAIFENESIN 600MG ER TABLET PO SCH (21:00)
[2019-06-19] VITALS (12 sets, daily range): BP systolic 120–160; BP diastolic 71–95
[2019-06-19] MEDS: ACETYLCYSTEINE 100MG/ML 10% VIAL 4ML INH SCH (01:05)
[2019-06-19] MEDS: ALBUTEROL (0.083%) 2.5MG/3ML NEB HHN SCH ×4 (01:05→20:43)
[2019-06-19] MEDS: DEXT 5%/0.45% NACL 1000ML 1,000 ML IV SCH (05:37)
[2019-06-19 06:21] LABS: BASOPHILS % 0.2 % (0.0-2.0); EOSINOPHILS % 2.2 % (0.0-5.0); HEMATOCRIT. 34.6 % (42.0-52.0); HEMOGLOBIN. 11.6 g/dL (14.0-18.0); LYMPHOCYTES % 9.3 % (20.0-50.0); MEAN CORPUSCULAR HEMOGLOBIN 30.1 pg (28.0-32.0); MEAN CORPUSCULAR VOLUME 90.1 fL (80.0-94.0); MEAN PLATELET VOLUME 8.4 fl (7.4-10.4); MONOCYTES % 8.4 % (2.0-8.0); NEUTROPHILS % 79.9 % (40.0-76.0); PLATELET 441 x1000/uL (130-400); RED BLOOD CELL COUNT 3.84 mill/uL (4.7-6.1); RED CELL DISTRIBUTION WIDTH 14.5 % (11.6-14.6)
[2019-06-19] MEDS: FAMOTIDINE 20MG/2ML VIAL IV SCH (09:12)
[2019-06-19] MEDS: METHADONE HCL 10MG TABLET PO SCH (09:12)
[2019-06-19] MEDS: DOCUSATE SODIUM SUGAR FREE 100MG/10ML UDC NG SCH (09:12)
[2019-06-19] MEDS: GUAIFENESIN 600MG ER TABLET PO SCH ×2 (09:14→20:11)
[2019-06-19] MEDS: IPRATROPIUM/ALBUTEROL 0.5-3(2.5)MG/3ML NEB HHN PRN (17:07)
[2019-06-19] MEDS: LORAZEPAM 2MG/ML CPJ IV PRN (20:11)
[2019-06-19] MEDS: HALOPERIDOL LACTATE 5MG/ML VIAL IM PRN (20:53)
[2019-06-20] VITALS (12 sets, daily range): BP systolic 104–154; BP diastolic 43–87
[2019-06-20] MEDS: ALBUTEROL (0.083%) 2.5MG/3ML NEB HHN SCH ×6 (00:14→20:50)
[2019-06-20] MEDS: IPRATROPIUM/ALBUTEROL 0.5-3(2.5)MG/3ML NEB HHN PRN (00:14)
[2019-06-20] MEDS: ACETYLCYSTEINE 100MG/ML 10% VIAL 4ML INH SCH ×2 (00:54→16:30)
[2019-06-20] MEDS: DEXT 5%/0.45% NACL 1000ML 1,000 ML IV SCH ×2 (00:59→17:30)
[2019-06-20] MEDS: GUAIFENESIN 600MG ER TABLET PO SCH (08:26)
[2019-06-20] MEDS: FAMOTIDINE 20MG/2ML VIAL IV SCH (08:26)
[2019-06-20] MEDS: DOCUSATE SODIUM SUGAR FREE 100MG/10ML UDC NG SCH (08:26)
[2019-06-20 08:30] LABS: BG BASE EXCESS 3.8 mmol/L (-2.0-2.0); BG CARBOXYHEMOGLOBIN 0.5 % (0.5-1.5); BG DEOXYHEMOGLOBIN 5.5 % (0.0-5.0); BG FRACTION INSPIRED OXYGEN 32; BG HCO3 ACT 29.7 mmol/L (22.0-26.0); BG METHEMOGLOBIN 0.3 % (0.0-1.5); BG OXYGEN SATURATION 94.5 % (92.0-98.5); BG OXYHEMOGLOBIN 93.7 % (94.0-97.0); BG PCO2 50.8 mmHg (35.0-45.0); BG PH 7.385 (7.350-7.450); BG PO2 70.9 mmHg (75.0-100.0); BG SAMPLE SITE RIGHT RADIAL; BG TOTAL HEMOGLOBIN 12.1 g/dL (12.0-18.0); BG VENT MODE NASAL CANNULA
[2019-06-20 11:20] LABS: HEMATOCRIT 34.6 % (42.0-52.0); HEMOGLOBIN 11.4 g/dL (14.0-18.0); MEAN CORPUSCULAR HEMOGLOBIN 30.2 pg (28.0-32.0); MEAN CORPUSCULAR VOLUME 91.2 fL (80.0-94.0); PLATELET 565 x1000/uL (130-400); RED BLOOD CELL COUNT 3.79 mill/uL (4.7-6.1); RED CELL DISTRIBUTION WIDTH 14.8 % (11.6-14.6)
[2019-06-20 11:29] LABS: CHLORIDE 104 mEq/L (98-107)
[2019-06-20] MEDS: HALOPERIDOL LACTATE 5MG/ML VIAL IM PRN ×2 (12:07→23:35)
[2019-06-20] MEDS: METOCLOPRAMIDE HCL 10MG/2ML VIAL IV SCH ×2 (12:28→18:00)
[2019-06-20] MEDS ORDERED: PROPOFOL 10MG/ML 100ML 100 ML IV PRN (13:15)
[2019-06-20] MEDS: LORAZEPAM 2MG/ML CPJ IM PRN (15:18)
[2019-06-20] MEDS: PIPERACILLIN/TAZOBACTAM 3.375 G in DEXT 5% WATER 100 ML IV SCH (18:00)
[2019-06-21] VITALS: BP 139/92
[2019-06-21] MEDS: ACETYLCYSTEINE 100MG/ML 10% VIAL 4ML INH SCH ×4 (00:54→22:17)
[2019-06-21] MEDS: ALBUTEROL (0.083%) 2.5MG/3ML NEB HHN SCH ×5 (00:54→21:00)
[2019-06-21] MEDS: PIPERACILLIN/TAZOBACTAM 3.375 G in DEXT 5% WATER 100 ML IV SCH ×4 (02:28→17:15)
[2019-06-21] MEDS: METOCLOPRAMIDE HCL 10MG/2ML VIAL IV SCH ×4 (02:31→17:15)
[2019-06-21] MEDS: DEXT 5%/0.45% NACL 1000ML 1,000 ML IV SCH (02:39)
[2019-06-21 04:00] VITALS: BP 143/83
[2019-06-21 07:17] LABS: CHLORIDE 106 mEq/L (98-107)
[2019-06-21 07:23] LABS: HEMATOCRIT. 32.6 % (42.0-52.0); HEMOGLOBIN. 10.8 g/dL (14.0-18.0); MEAN CORPUSCULAR HEMOGLOBIN 30.4 pg (28.0-32.0); MEAN CORPUSCULAR VOLUME 91.7 fL (80.0-94.0); PLATELET 521 x1000/uL (130-400); RED BLOOD CELL COUNT 3.56 mill/uL (4.7-6.1); RED CELL DISTRIBUTION WIDTH 15.1 % (11.6-14.6)
[2019-06-21 08:00] VITALS: BP 121/74
[2019-06-21] MEDS: DOCUSATE SODIUM SUGAR FREE 100MG/10ML UDC NG SCH (09:26)
[2019-06-21] MEDS: FAMOTIDINE 20MG/2ML VIAL IV SCH (09:27)
[2019-06-21 09:31] LABS: BG BASE EXCESS 6.2 mmol/L (-2.0-2.0); BG CARBOXYHEMOGLOBIN 0.3 % (0.5-1.5); BG DEOXYHEMOGLOBIN 4.5 % (0.0-5.0); BG FRACTION INSPIRED OXYGEN 32; BG HCO3 ACT 33.9 mmol/L (22.0-26.0); BG METHEMOGLOBIN 0.3 % (0.0-1.5); BG OXYGEN SATURATION 95.5 % (92.0-98.5); BG OXYHEMOGLOBIN 94.9 % (94.0-97.0); BG PCO2 64.7 mmHg (35.0-45.0); BG PH 7.337 (7.350-7.450); BG PO2 80.2 mmHg (75.0-100.0); BG SAMPLE SITE RIGHT RADIAL; BG TOTAL HEMOGLOBIN 12.2 g/dL (12.0-18.0); BG VENT MODE NASAL CANNULA
[2019-06-21] MEDS: HALOPERIDOL LACTATE 5MG/ML VIAL IM PRN ×3 (10:37→23:53)
[2019-06-21 12:00] VITALS: BP 125/84
[2019-06-21] MEDS: LORAZEPAM 2MG/ML CPJ IM PRN ×2 (12:06→22:17)
[2019-06-21 12:12] LABS: PLATELET ESTIMATE INCREASED
[2019-06-21] MEDS ORDERED: POTASSIUM CHLORIDE 20MEQ TABLET SR PO NR (12:15)
[2019-06-21] MEDS: METHADONE HCL 10MG TABLET PO SCH (13:11)
[2019-06-21] MEDS: IPRATROPIUM/ALBUTEROL 0.5-3(2.5)MG/3ML NEB HHN PRN (13:25)
[2019-06-21 16:00] VITALS: BP 144/77
[2019-06-21 20:00] VITALS: BP 127/72
[2019-06-22] VITALS: BP 151/80
[2019-06-22] MEDS: METOCLOPRAMIDE HCL 10MG/2ML VIAL IV SCH ×4 (00:32→17:01)
[2019-06-22] MEDS: PIPERACILLIN/TAZOBACTAM 3.375 G in DEXT 5% WATER 100 ML IV SCH ×4 (00:32→17:01)
[2019-06-22] MEDS: DEXT 5%/0.45% NACL 1000ML 1,000 ML IV SCH (00:33)
[2019-06-22] MEDS: ALBUTEROL (0.083%) 2.5MG/3ML NEB HHN SCH ×6 (01:00→21:10)
[2019-06-22] MEDS: ACETYLCYSTEINE 100MG/ML 10% VIAL 4ML INH SCH ×2 (01:00→14:00)
[2019-06-22 04:00] VITALS: BP 154/87
[2019-06-22 08:00] VITALS: BP 149/77
[2019-06-22] MEDS: DOCUSATE SODIUM SUGAR FREE 100MG/10ML UDC NG SCH (09:00)
[2019-06-22] MEDS: FAMOTIDINE 20MG/2ML VIAL IV SCH (09:00)
[2019-06-22] MEDS: METHADONE HCL 10MG TABLET PO SCH (09:04)
[2019-06-22] MEDS: HALOPERIDOL LACTATE 5MG/ML VIAL IM PRN (11:22)
[2019-06-22 12:00] VITALS: BP 121/66
[2019-06-22 16:00] VITALS: BP 142/88
[2019-06-22 20:00] VITALS: BP 139/79
[2019-06-22] MEDS: CLONIDINE 0.1MG TABLET NG PRN (22:39)
[2019-06-22] MEDS: LORAZEPAM 2MG/ML CPJ IM PRN (22:39)
[2019-06-23] VITALS: BP 119/71
[2019-06-23] MEDS: PIPERACILLIN/TAZOBACTAM 3.375 G in DEXT 5% WATER 100 ML IV SCH ×4 (00:24→17:18)
[2019-06-23] MEDS: METOCLOPRAMIDE HCL 10MG/2ML VIAL IV SCH ×4 (00:25→17:18)
[2019-06-23] MEDS: ACETYLCYSTEINE 100MG/ML 10% VIAL 4ML INH SCH ×4 (00:30→15:52)
[2019-06-23] MEDS: ALBUTEROL (0.083%) 2.5MG/3ML NEB HHN SCH ×6 (00:52→20:37)
[2019-06-23 04:00] VITALS: BP 97/56
[2019-06-23] MEDS: DEXT 5%/0.45% NACL 1000ML 1,000 ML IV SCH (05:43)
[2019-06-23 08:00] VITALS: BP 131/69
[2019-06-23] MEDS: FAMOTIDINE 20MG/2ML VIAL IV SCH (09:42)
[2019-06-23] MEDS: DOCUSATE SODIUM SUGAR FREE 100MG/10ML UDC NG SCH (09:42)
[2019-06-23] MEDS: METHADONE HCL 10MG TABLET PO SCH (09:42)
[2019-06-23 12:00] VITALS: BP 129/77
[2019-06-23] MEDS: MORPHINE SULFATE 2 MG/ML CPJ (NOT FOR IM USE) IV PRN ×2 (15:36→18:10)
[2019-06-23 16:00] VITALS: BP 119/79
[2019-06-23] MEDS: LORAZEPAM 2MG/ML CPJ IM PRN (19:55)
[2019-06-23 20:00] VITALS: BP 142/84
[2019-06-24] VITALS: BP 140/79
[2019-06-24] MEDS: ALBUTEROL (0.083%) 2.5MG/3ML NEB HHN SCH ×6 (00:27→22:39)
[2019-06-24] MEDS: PIPERACILLIN/TAZOBACTAM 3.375 G in DEXT 5% WATER 100 ML IV SCH ×5 (01:05→23:46)
[2019-06-24] MEDS: METOCLOPRAMIDE HCL 10MG/2ML VIAL IV SCH ×5 (01:07→23:46)
[2019-06-24 04:00] VITALS: BP 147/83
[2019-06-24] MEDS: DEXT 5%/0.45% NACL 1000ML 1,000 ML IV SCH (05:22)
[2019-06-24] MEDS: DOCUSATE SODIUM SUGAR FREE 100MG/10ML UDC NG SCH (08:44)
[2019-06-24] MEDS: FAMOTIDINE 20MG/2ML VIAL IV SCH (08:45)
[2019-06-24] MEDS: METHADONE HCL 10MG TABLET PO SCH (08:45)
[2019-06-24] MEDS: ACETYLCYSTEINE 100MG/ML 10% VIAL 4ML INH SCH ×2 (09:10→15:41)
[2019-06-24] MEDS: HALOPERIDOL LACTATE 5MG/ML VIAL IM PRN (09:47)
[2019-06-24] MEDS: LORAZEPAM 2MG/ML CPJ IM PRN (15:03)
[2019-06-24 20:00] VITALS: BP 151/85
[2019-06-25] VITALS (7 sets, daily range): BP systolic 108–167; BP diastolic 47–79
[2019-06-25] MEDS: DEXT 5%/0.45% NACL 1000ML 1,000 ML IV SCH ×2 (01:18→17:17)
[2019-06-25] MEDS: ALBUTEROL (0.083%) 2.5MG/3ML NEB HHN SCH ×6 (01:40→21:16)
[2019-06-25] MEDS: ACETYLCYSTEINE 100MG/ML 10% VIAL 4ML INH SCH ×3 (01:40→17:25)
[2019-06-25] MEDS: HALOPERIDOL LACTATE 5MG/ML VIAL IM PRN (04:02)
[2019-06-25] MEDS: METOCLOPRAMIDE HCL 10MG/2ML VIAL IV SCH ×3 (05:02→17:14)
[2019-06-25] MEDS: PIPERACILLIN/TAZOBACTAM 3.375 G in DEXT 5% WATER 100 ML IV SCH ×3 (05:02→17:17)
[2019-06-25] MEDS: MORPHINE SULFATE 2 MG/ML CPJ (NOT FOR IM USE) IV PRN ×2 (05:04→08:46)
[2019-06-25] MEDS: FAMOTIDINE 20MG/2ML VIAL IV SCH (08:40)
[2019-06-25] MEDS: METHADONE HCL 10MG TABLET PO SCH (08:42)
[2019-06-25] MEDS: DOCUSATE SODIUM SUGAR FREE 100MG/10ML UDC NG SCH (08:43)
[2019-06-25] MEDS: RISPERIDONE 1MG TABLET PO SCH (12:45)
[2019-06-25] MEDS: ACETAMINOPHEN 325MG TABLET PO PRN (21:12)
[2019-06-25] MEDS: CLONIDINE 0.1MG TABLET NG PRN (21:13)
[2019-06-26] MEDS: PIPERACILLIN/TAZOBACTAM 3.375 G in DEXT 5% WATER 100 ML IV SCH ×4 (00:01→18:28)
[2019-06-26] MEDS: METOCLOPRAMIDE HCL 10MG/2ML VIAL IV SCH ×4 (00:01→18:27)
[2019-06-26] MEDS: ALBUTEROL (0.083%) 2.5MG/3ML NEB HHN SCH ×5 (00:13→15:22)
[2019-06-26] MEDS: ACETAMINOPHEN 325MG TABLET PO PRN (04:52)
[2019-06-26 08:00] VITALS: BP 111/59
[2019-06-26] MEDS: RISPERIDONE 1MG TABLET PO SCH (08:18)
[2019-06-26] MEDS: DOCUSATE SODIUM SUGAR FREE 100MG/10ML UDC NG SCH (08:18)
[2019-06-26] MEDS: FAMOTIDINE 20MG/2ML VIAL IV SCH (08:18)
[2019-06-26] MEDS: METHADONE HCL 10MG TABLET PO SCH (08:21)
[2019-06-26 12:00] VITALS: BP 132/71
[2019-06-26] MEDS: LORAZEPAM 2MG/ML CPJ IM PRN (12:57)
[2019-06-26] MEDS: DEXT 5%/0.45% NACL 1000ML 1,000 ML IV SCH (14:54)
[2019-06-26 16:00] VITALS: BP 161/88
[2019-06-26 17:37] LABS: HEMATOCRIT. 35.4 % (42.0-52.0); HEMOGLOBIN. 11.8 g/dL (14.0-18.0); MEAN CORPUSCULAR HEMOGLOBIN 30.1 pg (28.0-32.0); MEAN CORPUSCULAR VOLUME 90.5 fL (80.0-94.0); MEAN PLATELET VOLUME 7.8 fl (7.4-10.4); PLATELET 555 x1000/uL (130-400); RED BLOOD CELL COUNT 3.91 mill/uL (4.7-6.1); RED CELL DISTRIBUTION WIDTH 15.1 % (11.6-14.6)
[2019-06-26 17:53] LABS: CHLORIDE 104 mEq/L (98-107)
[2019-06-26 20:00] VITALS: BP 161/84
[2019-06-26] MEDS: POTASSIUM CHLORIDE 20MEQ TABLET SR PO SCH ×2 (20:27→23:00)
[2019-06-26 23:03] LABS: PLATELET ESTIMATE INCREASED
[2019-06-27] VITALS: BP 156/80
[2019-06-27] MEDS: ALBUTEROL (0.083%) 2.5MG/3ML NEB HHN SCH ×6 (01:38→20:37)
[2019-06-27] MEDS: PIPERACILLIN/TAZOBACTAM 3.375 G in DEXT 5% WATER 100 ML IV SCH ×4 (02:14→17:39)
[2019-06-27] MEDS: METOCLOPRAMIDE HCL 10MG/2ML VIAL IV SCH ×4 (02:14→17:39)
[2019-06-27 04:00] VITALS: BP 149/79
[2019-06-27] MEDS ORDERED: POTASSIUM CHLORIDE INJ 40 MEQ in DEXT 5% WATER 500 ML IV NR ×3 (06:00)
[2019-06-27 08:00] VITALS: BP 132/78
[2019-06-27] MEDS: RISPERIDONE 1MG TABLET PO SCH (09:17)
[2019-06-27] MEDS: FAMOTIDINE 20MG/2ML VIAL IV SCH (09:17)
[2019-06-27] MEDS: DOCUSATE SODIUM SUGAR FREE 100MG/10ML UDC NG SCH (09:18)
[2019-06-27] MEDS: DEXT 5%/0.45% NACL 1000ML 1,000 ML IV SCH (09:18)
[2019-06-27] MEDS: MORPHINE SULFATE 2 MG/ML CPJ (NOT FOR IM USE) IV PRN (09:53)
[2019-06-27] MEDS: HALOPERIDOL LACTATE 5MG/ML VIAL IM PRN (11:53)
[2019-06-27 12:00] VITALS: BP 139/84
[2019-06-27 16:00] VITALS: BP 140/65
[2019-06-27 20:00] VITALS: BP 133/72
[2019-06-27 21:29] LABS: HEMATOCRIT 38.2 % (42.0-52.0); HEMOGLOBIN 12.4 g/dL (14.0-18.0); MEAN CORPUSCULAR HEMOGLOBIN 29.6 pg (28.0-32.0); MEAN CORPUSCULAR VOLUME 90.9 fL (80.0-94.0); PLATELET 531 x1000/uL (130-400); RED CELL DISTRIBUTION WIDTH 14.8 % (11.6-14.6)
[2019-06-27 21:36] LABS: CHLORIDE 102 mEq/L (98-107)
[2019-06-28] VITALS: BP 141/78
[2019-06-28] MEDS: METOCLOPRAMIDE HCL 10MG/2ML VIAL IV SCH ×4 (00:34→18:34)
[2019-06-28] MEDS: ALBUTEROL (0.083%) 2.5MG/3ML NEB HHN SCH ×4 (00:49→20:05)
[2019-06-28 04:00] VITALS: BP 154/91
[2019-06-28] MEDS: DEXT 5%/0.45% NACL 1000ML 1,000 ML IV SCH (05:52)
[2019-06-28 07:24] LABS: CHLORIDE 104 mEq/L (98-107)
[2019-06-28 07:42] LABS: HEMATOCRIT. 37.6 % (42.0-52.0); HEMOGLOBIN. 12.8 g/dL (14.0-18.0); MEAN CORPUSCULAR HEMOGLOBIN 30.8 pg (28.0-32.0); MEAN CORPUSCULAR VOLUME 90.5 fL (80.0-94.0); MEAN PLATELET VOLUME 8.2 fl (7.4-10.4); PLATELET 537 x1000/uL (130-400); RED BLOOD CELL COUNT 4.15 mill/uL (4.7-6.1); RED CELL DISTRIBUTION WIDTH 14.8 % (11.6-14.6)
[2019-06-28] MEDS: RISPERIDONE 1MG TABLET PO SCH (09:00)
[2019-06-28] MEDS: DOCUSATE SODIUM SUGAR FREE 100MG/10ML UDC NG SCH (09:00)
[2019-06-28] MEDS: FAMOTIDINE 20MG/2ML VIAL IV SCH (09:00)
[2019-06-28] MEDS: LORAZEPAM 2MG/ML CPJ IM PRN (10:53)
[2019-06-28 11:41] LABS: PLATELET ESTIMATE INCREASED
[2019-06-28] MEDS ORDERED: POTASSIUM CHLORIDE INJ 40 MEQ in DEXT 5% WATER 500 ML IV SCH (13:00)
[2019-06-28] MEDS: PANTOPRAZOLE SODIUM 40 MG/VIAL IV SCH (18:34)
[2019-06-28 20:00] VITALS: BP 142/82
[2019-06-28] MEDS: MORPHINE SULFATE 2 MG/ML CPJ (NOT FOR IM USE) IV PRN (23:32)
[2019-06-29] MEDS: ALBUTEROL (0.083%) 2.5MG/3ML NEB HHN SCH ×5 (00:50→21:13)
[2019-06-29] MEDS: METOCLOPRAMIDE HCL 10MG/2ML VIAL IV SCH ×4 (01:07→18:34)
[2019-06-29] MEDS: LORAZEPAM 2MG/ML CPJ IM PRN ×2 (01:07→20:31)
[2019-06-29 08:00] VITALS: BP 150/92
[2019-06-29] MEDS ORDERED: CEFAZOLIN 1000MG PREMIX 50 ML IV SCH (08:00)
[2019-06-29] MEDS: FAMOTIDINE 20MG/2ML VIAL IV SCH (08:49)
[2019-06-29] MEDS: PANTOPRAZOLE SODIUM 40 MG/VIAL IV SCH ×2 (08:49→17:00)
[2019-06-29] MEDS: DOCUSATE SODIUM SUGAR FREE 100MG/10ML UDC NG SCH (09:00)
[2019-06-29] MEDS: RISPERIDONE 1MG TABLET PO SCH (09:00)
[2019-06-29 11:59] LABS: BASOPHILS % 0.6 % (0.0-2.0); EOSINOPHILS % 1.4 % (0.0-5.0); HEMATOCRIT. 40.5 % (42.0-52.0); HEMOGLOBIN. 13.2 g/dL (14.0-18.0); LYMPHOCYTES % 20.7 % (20.0-50.0); MEAN CORPUSCULAR HEMOGLOBIN 29.6 pg (28.0-32.0); MEAN CORPUSCULAR VOLUME 90.6 fL (80.0-94.0); MEAN PLATELET VOLUME 7.9 fl (7.4-10.4); MONOCYTES % 14.2 % (2.0-8.0); NEUTROPHILS % 63.1 % (40.0-76.0); PLATELET 542 x1000/uL (130-400); RED BLOOD CELL COUNT 4.47 mill/uL (4.7-6.1); RED CELL DISTRIBUTION WIDTH 14.8 % (11.6-14.6)
[2019-06-29 12:00] VITALS: BP 154/96
[2019-06-29 12:00] LABS: INR 1.1; PROTHROMBIN TIME 11.6 sec (9.6-11.0)
[2019-06-29 12:48] LABS: CHLORIDE 104 mEq/L (98-107)
[2019-06-29] MEDS ORDERED: MIDAZOLAM HCL 5 MG/5 ML VIAL ONE (15:14)
[2019-06-29] MEDS ORDERED: FENTANYL CITRATE/PF 50MCG/ML 2ML VIAL ONE ×2 (15:15→16:15)
[2019-06-29] MEDS ORDERED: FENTANYL CITRATE/PF 50MCG/ML 2ML VIAL IV PRN (15:48)
[2019-06-29] MEDS ORDERED: MIDAZOLAM HCL 5 MG/5 ML VIAL IV PRN (15:49)
[2019-06-29] MEDS ORDERED: DIAZEPAM 5 MG/ML 2ML CPJ IV PRN (15:56)
[2019-06-29] MEDS ORDERED: DIAZEPAM 5 MG/ML 2ML CPJ ONE ×3 (15:57→16:18)
[2019-06-29 20:00] VITALS: BP 154/82
[2019-06-30] VITALS: BP 160/84
[2019-06-30 04:00] VITALS: BP 122/76
[2019-06-30] MEDS: ALBUTEROL (0.083%) 2.5MG/3ML NEB HHN SCH ×5 (04:57→20:24)
[2019-06-30] MEDS: METOCLOPRAMIDE HCL 10MG/2ML VIAL IV SCH ×4 (05:41→23:34)
[2019-06-30] MEDS: FAMOTIDINE 20MG/2ML VIAL IV SCH (08:21)
[2019-06-30] MEDS: RISPERIDONE 1MG TABLET PO SCH (08:21)
[2019-06-30] MEDS: DOCUSATE SODIUM SUGAR FREE 100MG/10ML UDC NG SCH (08:21)
[2019-06-30] MEDS: MORPHINE SULFATE 2 MG/ML CPJ (NOT FOR IM USE) IV PRN ×4 (11:19→23:33)
[2019-06-30] MEDS: DEXT 5%/0.45% NACL 1000ML 1,000 ML IV SCH (18:39)
[2019-06-30 20:00] VITALS: BP 120/81
[2019-06-30] MEDS: CLONIDINE 0.1MG TABLET NG PRN (23:32)
[2019-07-01] VITALS: BP 169/76
[2019-07-01] MEDS: LORAZEPAM 2MG/ML CPJ IM PRN (00:08)
[2019-07-01] MEDS: CLONIDINE 0.1MG TABLET NG PRN (00:18)
[2019-07-01] MEDS: ALBUTEROL (0.083%) 2.5MG/3ML NEB HHN SCH ×6 (01:44→23:58)
[2019-07-01 04:00] VITALS: BP 105/68
[2019-07-01] MEDS: METOCLOPRAMIDE HCL 10MG/2ML VIAL IV SCH ×3 (06:21→18:11)
[2019-07-01 08:00] VITALS: BP 114/71
[2019-07-01] MEDS: RISPERIDONE 1MG TABLET PO SCH (09:22)
[2019-07-01] MEDS: DOCUSATE SODIUM SUGAR FREE 100MG/10ML UDC NG SCH (09:22)
[2019-07-01] MEDS: FAMOTIDINE 20MG/2ML VIAL IV SCH (09:22)
[2019-07-01] MEDS: MORPHINE SULFATE 2 MG/ML CPJ (NOT FOR IM USE) IV PRN ×2 (09:24→20:26)
[2019-07-01 12:00] VITALS: BP 132/80
[2019-07-01 16:00] VITALS: BP 155/90
[2019-07-01] MEDS: IPRATROPIUM/ALBUTEROL 0.5-3(2.5)MG/3ML NEB HHN PRN (16:54)
[2019-07-01 20:00] VITALS: BP 130/75
[2019-07-01] MEDS: DEXT 5%/0.45% NACL 1000ML 1,000 ML IV SCH (20:24)
[2019-07-02] VITALS: BP 121/69
[2019-07-02] MEDS: METOCLOPRAMIDE HCL 10MG/2ML VIAL IV SCH ×4 (00:51→17:05)
[2019-07-02] MEDS: MORPHINE SULFATE 2 MG/ML CPJ (NOT FOR IM USE) IV PRN ×3 (01:29→10:46)
[2019-07-02] MEDS: ALBUTEROL (0.083%) 2.5MG/3ML NEB HHN SCH ×5 (03:45→21:53)
[2019-07-02 04:00] VITALS: BP 136/81
[2019-07-02] MEDS: LORAZEPAM 2MG/ML CPJ IM PRN ×2 (04:02→19:53)
[2019-07-02 08:00] VITALS: BP 159/87
[2019-07-02] MEDS: DOCUSATE SODIUM SUGAR FREE 100MG/10ML UDC NG SCH (08:59)
[2019-07-02] MEDS: RISPERIDONE 1MG TABLET PO SCH (08:59)
[2019-07-02] MEDS: FAMOTIDINE 20MG/2ML VIAL IV SCH (08:59)
[2019-07-02] MEDS: DEXT 5%/0.45% NACL 1000ML 1,000 ML IV SCH (10:45)
[2019-07-02 12:00] VITALS: BP 127/78
[2019-07-02] MEDS: ACETAMINOPHEN 325MG TABLET PO PRN (12:38)
[2019-07-02 16:00] VITALS: BP 129/74
[2019-07-02 17:04] LABS: BASOPHILS % 0.4 % (0.0-2.0); EOSINOPHILS % 0.2 % (0.0-5.0); HEMATOCRIT. 35.5 % (42.0-52.0); HEMOGLOBIN. 11.8 g/dL (14.0-18.0); LYMPHOCYTES % 9.7 % (20.0-50.0); MEAN CORPUSCULAR HEMOGLOBIN 29.9 pg (28.0-32.0); MEAN CORPUSCULAR VOLUME 89.9 fL (80.0-94.0); MEAN PLATELET VOLUME 7.9 fl (7.4-10.4); MONOCYTES % 14.8 % (2.0-8.0); NEUTROPHILS % 74.9 % (40.0-76.0); PLATELET 345 x1000/uL (130-400); RED BLOOD CELL COUNT 3.94 mill/uL (4.7-6.1); RED CELL DISTRIBUTION WIDTH 14.5 % (11.6-14.6)
[2019-07-02 17:12] LABS: CHLORIDE 104 mEq/L (98-107)
[2019-07-02] MEDS ORDERED: POTASSIUM CHLORIDE 20MEQ TABLET SR PO NR (18:00)
[2019-07-02 20:00] VITALS: BP 159/87
[2019-07-02] MEDS: LEVOFLOXACIN 500MG PREMIX 100 ML IV SCH (20:10)
[2019-07-02] MEDS: HALOPERIDOL LACTATE 5MG/ML VIAL IM PRN (22:11)
[2019-07-03] VITALS: BP 133/84
[2019-07-03] MEDS: ALBUTEROL (0.083%) 2.5MG/3ML NEB HHN SCH ×5 (00:17→21:20)
[2019-07-03] MEDS: METOCLOPRAMIDE HCL 10MG/2ML VIAL IV SCH ×5 (01:32→23:46)
[2019-07-03] MEDS: MORPHINE SULFATE 2 MG/ML CPJ (NOT FOR IM USE) IV PRN ×3 (01:32→20:29)
[2019-07-03 04:00] VITALS: BP 141/70
[2019-07-03] MEDS: HALOPERIDOL LACTATE 5MG/ML VIAL IM PRN ×2 (05:10→21:39)
[2019-07-03] MEDS: IPRATROPIUM/ALBUTEROL 0.5-3(2.5)MG/3ML NEB HHN PRN (05:21)
[2019-07-03] MEDS: FAMOTIDINE 20MG/2ML VIAL IV SCH (09:48)
[2019-07-03] MEDS: DOCUSATE SODIUM SUGAR FREE 100MG/10ML UDC NG SCH (09:49)
[2019-07-03] MEDS: RISPERIDONE 1MG TABLET PO SCH (09:49)
[2019-07-03 10:07] LABS: HEMATOCRIT. 38.4 % (42.0-52.0); HEMOGLOBIN. 12.8 g/dL (14.0-18.0); MEAN CORPUSCULAR HEMOGLOBIN 29.7 pg (28.0-32.0); MEAN CORPUSCULAR VOLUME 89.3 fL (80.0-94.0); MEAN PLATELET VOLUME 8.1 fl (7.4-10.4); PLATELET 399 x1000/uL (130-400); RED CELL DISTRIBUTION WIDTH 14.8 % (11.6-14.6)
[2019-07-03 10:14] LABS: CHLORIDE 104 mEq/L (98-107)
[2019-07-03 15:37] LABS: CLARITY URINE CLOUDY (CLEAR); COLOR URINE YELLOW (YELLOW); KETONES URINE NEGATIVE (NEGATIVE); LEUKOCYTE ESTERASE URINE TRACE (NEGATIVE); NITRITE URINE POSITIVE (NEGATIVE); OCCULT BLOOD URINE 1+ (NEGATIVE); PH URINE 7.5 (4.5-8.0); PROTEIN URINE TRACE (NEGATIVE); SPECIFIC GRAVITY URINE 1.016 (1.005-1.030)
[2019-07-03 16:08] LABS: PLATELET ESTIMATE NORMAL
[2019-07-03] MEDS: LEVOFLOXACIN 500MG PREMIX 100 ML IV SCH (17:18)
[2019-07-03 20:00] VITALS: BP 118/76
[2019-07-04] VITALS: BP 126/78
[2019-07-04] MEDS: ALBUTEROL (0.083%) 2.5MG/3ML NEB HHN SCH ×7 (01:27→23:33)
[2019-07-04 04:00] VITALS: BP 136/75
[2019-07-04] MEDS: MORPHINE SULFATE 2 MG/ML CPJ (NOT FOR IM USE) IV PRN ×2 (04:14→12:42)
[2019-07-04] MEDS: METOCLOPRAMIDE HCL 10MG/2ML VIAL IV SCH ×3 (06:34→17:45)
[2019-07-04 06:58] LABS: HEMATOCRIT. 35.6 % (42.0-52.0); MEAN CORPUSCULAR HEMOGLOBIN 29.9 pg (28.0-32.0); MEAN CORPUSCULAR VOLUME 88.7 fL (80.0-94.0); MEAN PLATELET VOLUME 8.1 fl (7.4-10.4); PLATELET 389 x1000/uL (130-400); RED BLOOD CELL COUNT 4.01 mill/uL (4.7-6.1); RED CELL DISTRIBUTION WIDTH 14.7 % (11.6-14.6)
[2019-07-04 08:00] VITALS: BP 129/66
[2019-07-04 08:10] LABS: CHLORIDE 104 mEq/L (98-107)
[2019-07-04] MEDS: DOCUSATE SODIUM SUGAR FREE 100MG/10ML UDC NG SCH (08:46)
[2019-07-04] MEDS: RISPERIDONE 1MG TABLET PO SCH (08:46)
[2019-07-04] MEDS: FAMOTIDINE 20MG/2ML VIAL IV SCH (08:47)
[2019-07-04 11:56] LABS: PLATELET ESTIMATE NORMAL
[2019-07-04 12:00] VITALS: BP 117/56
[2019-07-04] MEDS ORDERED: LACTULOSE 20G/30ML UDC PO NR (12:45)
[2019-07-04 16:00] VITALS: BP 138/74
[2019-07-04] MEDS: LEVOFLOXACIN 500MG PREMIX 100 ML IV SCH (18:25)
[2019-07-04 20:00] VITALS: BP_SYST 151; BP_SYST 152; BP_DIAS 80; BP_DIAS 89
[2019-07-04] MEDS: HALOPERIDOL LACTATE 5MG/ML VIAL IM PRN (20:21)
[2019-07-04] MEDS: ENOXAPARIN 80MG/0.8ML SYR SUBCUT SCH (21:20)
[2019-07-05] MEDS: METOCLOPRAMIDE HCL 10MG/2ML VIAL IV SCH ×4 (00:01→17:49)
[2019-07-05] MEDS: MORPHINE SULFATE 2 MG/ML CPJ (NOT FOR IM USE) IV PRN ×3 (03:30→17:50)
[2019-07-05 04:00] VITALS: BP 151/76
[2019-07-05] MEDS: ALBUTEROL (0.083%) 2.5MG/3ML NEB HHN SCH ×6 (05:03→23:52)
[2019-07-05 08:00] VITALS: BP 142/73
[2019-07-05] MEDS: DOCUSATE SODIUM SUGAR FREE 100MG/10ML UDC NG SCH (08:50)
[2019-07-05] MEDS: RISPERIDONE 1MG TABLET PO SCH (08:50)
[2019-07-05] MEDS: FAMOTIDINE 20MG/2ML VIAL IV SCH (08:50)
[2019-07-05] MEDS: ENOXAPARIN 80MG/0.8ML SYR SUBCUT SCH ×2 (09:04→20:32)
[2019-07-05 09:58] LABS: HEMATOCRIT. 35.8 % (42.0-52.0); MEAN CORPUSCULAR VOLUME 89.8 fL (80.0-94.0); PLATELET 399 x1000/uL (130-400); RED BLOOD CELL COUNT 3.99 mill/uL (4.7-6.1); RED CELL DISTRIBUTION WIDTH 14.6 % (11.6-14.6)
[2019-07-05 10:45] LABS: CHLORIDE 106 mEq/L (98-107)
[2019-07-05 12:00] VITALS: BP 104/65
[2019-07-05 13:36] LABS: PLATELET ESTIMATE NORMAL
[2019-07-05 16:00] VITALS: BP 113/71
[2019-07-05 20:00] VITALS: BP 117/69
[2019-07-05] MEDS: LEVOFLOXACIN 500MG PREMIX 100 ML IV SCH (20:39)
[2019-07-06] VITALS: BP 142/84
[2019-07-06] MEDS: MORPHINE SULFATE 2 MG/ML CPJ (NOT FOR IM USE) IV PRN (00:14)
[2019-07-06] MEDS: METOCLOPRAMIDE HCL 10MG/2ML VIAL IV SCH ×3 (00:14→17:32)
[2019-07-06 04:00] VITALS: BP 108/64
[2019-07-06] MEDS: ALBUTEROL (0.083%) 2.5MG/3ML NEB HHN SCH ×5 (04:22→20:55)
[2019-07-06 08:00] VITALS: BP 138/64
[2019-07-06] MEDS: DOCUSATE SODIUM SUGAR FREE 100MG/10ML UDC NG SCH (08:26)
[2019-07-06] MEDS: RISPERIDONE 1MG TABLET PO SCH (08:26)
[2019-07-06] MEDS: ENOXAPARIN 80MG/0.8ML SYR SUBCUT SCH ×2 (09:24→21:56)
[2019-07-06 12:00] VITALS: BP 139/58
[2019-07-06 16:00] VITALS: BP 132/82
[2019-07-06 20:00] VITALS: BP 175/88
[2019-07-06] MEDS: LEVOFLOXACIN 500MG PREMIX 100 ML IV SCH (21:55)
[2019-07-07] VITALS: BP 140/81
[2019-07-07] MEDS: ALBUTEROL (0.083%) 2.5MG/3ML NEB HHN SCH ×5 (01:04→15:56)
[2019-07-07] MEDS: METOCLOPRAMIDE HCL 10MG/2ML VIAL IV SCH ×5 (01:35→23:19)
[2019-07-07 04:00] VITALS: BP 157/67
[2019-07-07 08:00] VITALS: BP 134/82
[2019-07-07] MEDS: ENOXAPARIN 80MG/0.8ML SYR SUBCUT SCH ×2 (08:59→20:29)
[2019-07-07] MEDS: RISPERIDONE 1MG TABLET PO SCH (08:59)
[2019-07-07] MEDS: DOCUSATE SODIUM SUGAR FREE 100MG/10ML UDC NG SCH (08:59)
[2019-07-07] MEDS: MORPHINE SULFATE 2 MG/ML CPJ (NOT FOR IM USE) IV PRN ×3 (09:00→23:32)
[2019-07-07 12:00] VITALS: BP 132/75
[2019-07-07 16:00] VITALS: BP 129/78
[2019-07-07] MEDS: LEVOFLOXACIN 500MG PREMIX 100 ML IV SCH (18:32)
[2019-07-07 20:00] VITALS: BP 119/72
[2019-07-08] VITALS: BP 135/83
[2019-07-08] MEDS: ALBUTEROL (0.083%) 2.5MG/3ML NEB HHN SCH ×6 (01:48→20:57)
[2019-07-08] MEDS: MORPHINE SULFATE 2 MG/ML CPJ (NOT FOR IM USE) IV PRN ×5 (02:24→22:55)
[2019-07-08 04:00] VITALS: BP 141/84
[2019-07-08] MEDS: METOCLOPRAMIDE HCL 10MG/2ML VIAL IV SCH ×4 (05:55→23:29)
[2019-07-08 08:00] VITALS: BP 140/75
[2019-07-08] MEDS: DOCUSATE SODIUM SUGAR FREE 100MG/10ML UDC NG SCH (08:13)
[2019-07-08] MEDS: RISPERIDONE 1MG TABLET PO SCH (08:14)
[2019-07-08] MEDS: ENOXAPARIN 80MG/0.8ML SYR SUBCUT SCH ×2 (08:14→21:38)
[2019-07-08] MEDS: HALOPERIDOL LACTATE 5MG/ML VIAL IM PRN (10:49)
[2019-07-08 12:00] VITALS: BP 134/86
[2019-07-08 16:00] VITALS: BP 119/79
[2019-07-08] MEDS: LEVOFLOXACIN 500MG PREMIX 100 ML IV SCH (18:55)
[2019-07-08 20:00] VITALS: BP 100/63
[2019-07-09] VITALS: BP 115/67
[2019-07-09] MEDS: HALOPERIDOL LACTATE 5MG/ML VIAL IM PRN (00:57)
[2019-07-09] MEDS: ALBUTEROL (0.083%) 2.5MG/3ML NEB HHN SCH ×6 (01:00→23:03)
[2019-07-09 04:00] VITALS: BP 127/70
[2019-07-09] MEDS: METOCLOPRAMIDE HCL 10MG/2ML VIAL IV SCH ×3 (05:34→18:20)
[2019-07-09] MEDS: MORPHINE SULFATE 2 MG/ML CPJ (NOT FOR IM USE) IV PRN (05:45)
[2019-07-09 08:00] VITALS: BP 132/64
[2019-07-09] MEDS: DOCUSATE SODIUM SUGAR FREE 100MG/10ML UDC NG SCH (09:41)
[2019-07-09] MEDS: ENOXAPARIN 80MG/0.8ML SYR SUBCUT SCH ×2 (09:42→22:08)
[2019-07-09] MEDS: RISPERIDONE 1MG TABLET PO SCH (09:42)
[2019-07-09 12:00] VITALS: BP 127/70
[2019-07-09 16:00] VITALS: BP 137/62
[2019-07-09] MEDS: LEVOFLOXACIN 500MG PREMIX 100 ML IV SCH (18:20)
[2019-07-09 20:00] VITALS: BP 126/84
[2019-07-09] MEDS: KETOROLAC 30MG/ML VIAL IV PRN (22:09)
[2019-07-10] VITALS: BP 131/75
[2019-07-10] MEDS: ALBUTEROL (0.083%) 2.5MG/3ML NEB HHN SCH ×6 (01:34→21:35)
[2019-07-10] MEDS: METOCLOPRAMIDE HCL 10MG/2ML VIAL IV SCH ×3 (02:50→17:23)
[2019-07-10 04:00] VITALS: BP 141/79
[2019-07-10 08:00] VITALS: BP 124/83
[2019-07-10] MEDS: RISPERIDONE 1MG TABLET PO SCH (09:40)
[2019-07-10] MEDS: DOCUSATE SODIUM SUGAR FREE 100MG/10ML UDC NG SCH (09:40)
[2019-07-10] MEDS: ENOXAPARIN 80MG/0.8ML SYR SUBCUT SCH ×2 (09:41→22:20)
[2019-07-10 12:00] VITALS: BP 118/69
[2019-07-10] MEDS: KETOROLAC 30MG/ML VIAL IV PRN ×2 (15:06→22:20)
[2019-07-10 16:00] VITALS: BP 146/95
[2019-07-10 17:16] LABS: EOSINOPHILS % 0.9 % (0.0-5.0); HEMATOCRIT. 35.3 % (42.0-52.0); LYMPHOCYTES % 28.6 % (20.0-50.0); MEAN CORPUSCULAR HEMOGLOBIN 30.4 pg (28.0-32.0); MEAN CORPUSCULAR VOLUME 89.3 fL (80.0-94.0); MEAN PLATELET VOLUME 8.4 fl (7.4-10.4); MONOCYTES % 11.6 % (2.0-8.0); NEUTROPHILS % 57.9 % (40.0-76.0); PLATELET 334 x1000/uL (130-400); RED BLOOD CELL COUNT 3.95 mill/uL (4.7-6.1); RED CELL DISTRIBUTION WIDTH 14.5 % (11.6-14.6)
[2019-07-10 20:00] VITALS: BP 133/92
[2019-07-11] VITALS: BP 145/77
[2019-07-11] MEDS: ALBUTEROL (0.083%) 2.5MG/3ML NEB HHN SCH ×6 (01:44→20:41)
[2019-07-11] MEDS: METOCLOPRAMIDE HCL 10MG/2ML VIAL IV SCH ×3 (02:18→17:49)
[2019-07-11 04:00] VITALS: BP 140/83
[2019-07-11] MEDS: KETOROLAC 30MG/ML VIAL IV PRN ×2 (05:07→18:13)
[2019-07-11 05:53] LABS: CHLORIDE 106 mEq/L (98-107)
[2019-07-11 06:02] LABS: BASOPHILS % 0.7 % (0.0-2.0); HEMATOCRIT. 35.5 % (42.0-52.0); HEMOGLOBIN. 11.9 g/dL (14.0-18.0); LYMPHOCYTES % 27.3 % (20.0-50.0); MEAN CORPUSCULAR HEMOGLOBIN 30.1 pg (28.0-32.0); MEAN CORPUSCULAR VOLUME 89.5 fL (80.0-94.0); MEAN PLATELET VOLUME 8.4 fl (7.4-10.4); MONOCYTES % 11.2 % (2.0-8.0); NEUTROPHILS % 59.8 % (40.0-76.0); PLATELET 383 x1000/uL (130-400); RED BLOOD CELL COUNT 3.97 mill/uL (4.7-6.1); RED CELL DISTRIBUTION WIDTH 14.9 % (11.6-14.6)
[2019-07-11 08:00] VITALS: BP 130/78
[2019-07-11] MEDS: RISPERIDONE 1MG TABLET PO SCH (08:37)
[2019-07-11] MEDS: DOCUSATE SODIUM SUGAR FREE 100MG/10ML UDC NG SCH (08:37)
[2019-07-11] MEDS: ENOXAPARIN 80MG/0.8ML SYR SUBCUT SCH ×2 (08:38→20:09)
[2019-07-11 12:00] VITALS: BP 130/76
[2019-07-11 16:00] VITALS: BP 122/73
[2019-07-11 20:00] VITALS: BP 129/85
[2019-07-12] VITALS: BP 126/78
[2019-07-12] MEDS: ALBUTEROL (0.083%) 2.5MG/3ML NEB HHN SCH ×6 (00:48→20:37)
[2019-07-12] MEDS: MORPHINE SULFATE 2 MG/ML CPJ (NOT FOR IM USE) IV PRN (03:46)
[2019-07-12 04:00] VITALS: BP 129/77
[2019-07-12] MEDS: METOCLOPRAMIDE HCL 10MG/2ML VIAL IV SCH ×5 (06:30→23:42)
[2019-07-12 08:00] VITALS: BP 115/76
[2019-07-12] MEDS: RISPERIDONE 1MG TABLET PO SCH (09:00)
[2019-07-12] MEDS: ENOXAPARIN 80MG/0.8ML SYR SUBCUT SCH ×2 (10:09→21:24)
[2019-07-12] MEDS: DOCUSATE SODIUM SUGAR FREE 100MG/10ML UDC NG SCH (10:14)
[2019-07-12 12:00] VITALS: BP 123/67
[2019-07-12 16:08] VITALS: BP 115/79
[2019-07-12] MEDS: KETOROLAC 30MG/ML VIAL IV PRN ×2 (17:09→23:44)
[2019-07-12 20:00] VITALS: BP 131/73
[2019-07-13] VITALS: BP 128/71
[2019-07-13] MEDS: ALBUTEROL (0.083%) 2.5MG/3ML NEB HHN SCH ×6 (00:28→20:12)
[2019-07-13 04:00] VITALS: BP 126/78
[2019-07-13] MEDS: METOCLOPRAMIDE HCL 10MG/2ML VIAL IV SCH ×3 (05:39→17:36)
[2019-07-13] MEDS: KETOROLAC 30MG/ML VIAL IV PRN ×3 (05:40→21:33)
[2019-07-13] MEDS: DOCUSATE SODIUM SUGAR FREE 100MG/10ML UDC NG SCH (09:00)
[2019-07-13] MEDS: ENOXAPARIN 80MG/0.8ML SYR SUBCUT SCH ×2 (09:00→20:45)
[2019-07-13] MEDS: RISPERIDONE 1MG TABLET PO SCH (09:00)
[2019-07-13] MEDS: HALOPERIDOL LACTATE 5MG/ML VIAL IM PRN (09:18)
[2019-07-13 20:00] VITALS: BP 106/71
[2019-07-14] VITALS: BP 110/75
[2019-07-14] MEDS: METOCLOPRAMIDE HCL 10MG/2ML VIAL IV SCH ×4 (00:23→18:43)
[2019-07-14] MEDS: ALBUTEROL (0.083%) 2.5MG/3ML NEB HHN SCH ×6 (00:35→21:20)
[2019-07-14 04:00] VITALS: BP 136/75
[2019-07-14] MEDS: KETOROLAC 30MG/ML VIAL IV PRN ×3 (05:05→22:29)
[2019-07-14 08:00] VITALS: BP 117/81
[2019-07-14] MEDS: ENOXAPARIN 80MG/0.8ML SYR SUBCUT SCH ×2 (08:25→22:29)
[2019-07-14] MEDS: RISPERIDONE 1MG TABLET PO SCH (08:25)
[2019-07-14 12:00] VITALS: BP 155/103
[2019-07-14 16:00] VITALS: BP_SYST 108; BP_SYST 116; BP_DIAS 70; BP_DIAS 79
[2019-07-14 20:00] VITALS: BP 109/71
[2019-07-14] MEDS: HALOPERIDOL LACTATE 5MG/ML VIAL IM PRN (22:38)
[2019-07-15] VITALS: BP 131/69
[2019-07-15] MEDS: ALBUTEROL (0.083%) 2.5MG/3ML NEB HHN SCH ×6 (00:47→20:42)
[2019-07-15] MEDS: METOCLOPRAMIDE HCL 10MG/2ML VIAL IV SCH ×5 (03:22→22:28)
[2019-07-15 04:00] VITALS: BP 129/61
[2019-07-15] MEDS: HALOPERIDOL LACTATE 5MG/ML VIAL IM PRN ×2 (05:11→20:24)
[2019-07-15] MEDS: KETOROLAC 30MG/ML VIAL IV PRN ×3 (05:11→22:29)
[2019-07-15 08:00] VITALS: BP 112/74
[2019-07-15] MEDS: RISPERIDONE 1MG TABLET PO SCH (09:01)
[2019-07-15] MEDS: ENOXAPARIN 80MG/0.8ML SYR SUBCUT SCH ×2 (09:01→20:24)
[2019-07-15 12:00] VITALS: BP 123/73
[2019-07-15 16:00] VITALS: BP 114/75
[2019-07-15 20:00] VITALS: BP 96/62
[2019-07-16] VITALS: BP 126/65
[2019-07-16] MEDS: ALBUTEROL (0.083%) 2.5MG/3ML NEB HHN SCH ×3 (00:41→09:28)
[2019-07-16 04:00] VITALS: BP 116/61
[2019-07-16] MEDS: METOCLOPRAMIDE HCL 10MG/2ML VIAL IV SCH ×4 (06:26→23:33)
[2019-07-16] MEDS: KETOROLAC 30MG/ML VIAL IV PRN ×3 (06:26→18:41)
[2019-07-16 08:00] VITALS: BP 121/69
[2019-07-16] MEDS: RISPERIDONE 1MG TABLET PO SCH (09:00)
[2019-07-16] MEDS: ENOXAPARIN 80MG/0.8ML SYR SUBCUT SCH ×2 (09:00→20:52)
[2019-07-16 12:00] VITALS: BP 121/65
[2019-07-16 16:00] VITALS: BP 127/78
[2019-07-16 20:00] VITALS: BP 130/72
[2019-07-17] VITALS: BP 127/71
[2019-07-17] MEDS: KETOROLAC 30MG/ML VIAL IV PRN ×4 (00:59→21:12)
[2019-07-17 04:00] VITALS: BP 126/73
[2019-07-17] MEDS: METOCLOPRAMIDE HCL 10MG/2ML VIAL IV SCH ×3 (05:24→18:09)
[2019-07-17] MEDS: HALOPERIDOL LACTATE 5MG/ML VIAL IM PRN (05:27)
[2019-07-17 08:00] VITALS: BP 115/71
[2019-07-17] MEDS: ENOXAPARIN 80MG/0.8ML SYR SUBCUT SCH ×2 (09:54→21:12)
[2019-07-17] MEDS: RISPERIDONE 1MG TABLET PO SCH (09:54)
[2019-07-17 12:00] VITALS: BP 117/73
[2019-07-17 16:00] VITALS: BP 102/56
[2019-07-17] MEDS ORDERED: ALBUTEROL (0.083%) 2.5MG/3ML NEB ONE (17:50)
[2019-07-17 20:00] VITALS: BP 114/75
[2019-07-17] MEDS: ALBUTEROL (0.083%) 2.5MG/3ML NEB HHN SCH (22:22)
[2019-07-18] VITALS: BP 134/74
[2019-07-18] MEDS: METOCLOPRAMIDE HCL 10MG/2ML VIAL IV SCH ×3 (00:16→12:00)
[2019-07-18] MEDS: ACETYLCYSTEINE 100MG/ML 10% VIAL 4ML INH SCH ×2 (01:49→13:26)
[2019-07-18] MEDS: ALBUTEROL (0.083%) 2.5MG/3ML NEB HHN SCH ×6 (01:50→20:57)
[2019-07-18] MEDS: KETOROLAC 30MG/ML VIAL IV PRN ×4 (03:35→22:04)
[2019-07-18 04:00] VITALS: BP 133/70
[2019-07-18 06:33] LABS: BASOPHILS % 0.5 % (0.0-2.0); EOSINOPHILS % 5.4 % (0.0-5.0); HEMATOCRIT. 31.8 % (42.0-52.0); HEMOGLOBIN. 10.8 g/dL (14.0-18.0); MEAN CORPUSCULAR HEMOGLOBIN 30.8 pg (28.0-32.0); MEAN CORPUSCULAR VOLUME 90.4 fL (80.0-94.0); MEAN PLATELET VOLUME 8.7 fl (7.4-10.4); MONOCYTES % 9.5 % (2.0-8.0); NEUTROPHILS % 56.6 % (40.0-76.0); PLATELET 380 x1000/uL (130-400); RED BLOOD CELL COUNT 3.52 mill/uL (4.7-6.1); RED CELL DISTRIBUTION WIDTH 15.2 % (11.6-14.6)
[2019-07-18 07:54] LABS: CHLORIDE 100 mEq/L (98-107)
[2019-07-18 08:00] VITALS: BP 108/66
[2019-07-18] MEDS: RISPERIDONE 1MG TABLET PO SCH (09:16)
[2019-07-18] MEDS: ENOXAPARIN 80MG/0.8ML SYR SUBCUT SCH ×2 (09:16→21:04)
[2019-07-18 12:00] VITALS: BP 108/65
[2019-07-18] MEDS ORDERED: POTASSIUM CHLORIDE 20MEQ TABLET SR PO SCH (13:30)
[2019-07-18 16:00] VITALS: BP 130/75
[2019-07-18 20:00] VITALS: BP 126/79
[2019-07-19] VITALS: BP_SYST 125; BP_SYST 141; BP_DIAS 79; BP_DIAS 83
[2019-07-19] MEDS: ALBUTEROL (0.083%) 2.5MG/3ML NEB HHN SCH ×7 (00:33→20:33)
[2019-07-19] MEDS: ACETYLCYSTEINE 100MG/ML 10% VIAL 4ML INH SCH ×2 (00:33→17:31)
[2019-07-19 04:00] VITALS: BP 126/85
[2019-07-19] MEDS: KETOROLAC 30MG/ML VIAL IV PRN ×3 (04:09→16:54)
[2019-07-19 07:54] VITALS: BP 134/65
[2019-07-19] MEDS: RISPERIDONE 1MG TABLET PO SCH (09:15)
[2019-07-19] MEDS: ENOXAPARIN 80MG/0.8ML SYR SUBCUT SCH ×2 (09:16→21:55)
[2019-07-19 12:00] VITALS: BP 133/68
[2019-07-19 16:00] VITALS: BP 109/80
[2019-07-19 20:00] VITALS: BP 135/84
[2019-07-19] MEDS ORDERED: ZOLPIDEM TARTRATE 5MG TABLET PO PRN (21:45)
[2019-07-20] VITALS: BP_SYST 106; BP_SYST 126; BP_DIAS 47; BP_DIAS 87
[2019-07-20] MEDS: ACETYLCYSTEINE 100MG/ML 10% VIAL 4ML INH SCH ×3 (00:04→17:00)
[2019-07-20] MEDS: ALBUTEROL (0.083%) 2.5MG/3ML NEB HHN SCH ×5 (00:04→20:06)
[2019-07-20] MEDS: LORAZEPAM 2MG/ML CPJ IV PRN ×2 (00:37→16:59)
[2019-07-20] MEDS ORDERED: HALOPERIDOL LACTATE 5MG/ML VIAL IM PRN (04:45)
[2019-07-20 08:00] VITALS: BP 123/61
[2019-07-20] MEDS: RISPERIDONE 1MG TABLET PO SCH (09:13)
[2019-07-20] MEDS: ENOXAPARIN 80MG/0.8ML SYR SUBCUT SCH (09:13)
[2019-07-20 09:19] LABS: BASOPHILS % 0.8 % (0.0-2.0); EOSINOPHILS % 2.9 % (0.0-5.0); HEMATOCRIT. 33.8 % (42.0-52.0); HEMOGLOBIN. 11.3 g/dL (14.0-18.0); LYMPHOCYTES % 26.7 % (20.0-50.0); MEAN CORPUSCULAR HEMOGLOBIN 30.5 pg (28.0-32.0); MEAN CORPUSCULAR VOLUME 91.1 fL (80.0-94.0); MEAN PLATELET VOLUME 7.9 fl (7.4-10.4); NEUTROPHILS % 59.6 % (40.0-76.0); PLATELET 446 x1000/uL (130-400); RED BLOOD CELL COUNT 3.71 mill/uL (4.7-6.1); RED CELL DISTRIBUTION WIDTH 15.6 % (11.6-14.6)
[2019-07-20 09:25] LABS: CHLORIDE 104 mEq/L (98-107)
[2019-07-20 12:00] VITALS: BP 127/80
[2019-07-20] MEDS: KETOROLAC 30MG/ML VIAL IV PRN (15:35)
[2019-07-20 16:00] VITALS: BP 111/61
[2019-07-20 20:00] VITALS: BP 132/59
[2019-07-21] VITALS: BP 157/79
[2019-07-21] MEDS: ACETYLCYSTEINE 100MG/ML 10% VIAL 4ML INH SCH ×3 (01:30→08:38)
[2019-07-21] MEDS: ALBUTEROL (0.083%) 2.5MG/3ML NEB HHN SCH ×6 (02:08→21:30)
[2019-07-21 04:00] VITALS: BP 123/66
[2019-07-21 08:00] VITALS: BP 129/73
[2019-07-21] MEDS: RISPERIDONE 1MG TABLET PO SCH (08:39)
[2019-07-21] MEDS: KETOROLAC 30MG/ML VIAL IV PRN ×3 (08:41→22:39)
[2019-07-21 12:00] VITALS: BP 134/79
[2019-07-21 16:00] VITALS: BP 133/77
[2019-07-21 20:00] VITALS: BP 133/76
[2019-07-21] MEDS: ENOXAPARIN 80MG/0.8ML SYR SUBCUT SCH (21:36)
[2019-07-22] VITALS: BP 140/78
[2019-07-22] MEDS: ALBUTEROL (0.083%) 2.5MG/3ML NEB HHN SCH ×6 (01:30→21:04)
[2019-07-22 04:00] VITALS: BP 103/82
[2019-07-22] MEDS: KETOROLAC 30MG/ML VIAL IV PRN ×3 (04:54→19:56)
[2019-07-22 08:00] VITALS: BP 132/75
[2019-07-22] MEDS: ACETYLCYSTEINE 100MG/ML 10% VIAL 4ML INH SCH ×2 (08:19→15:45)
[2019-07-22] MEDS: ENOXAPARIN 80MG/0.8ML SYR SUBCUT SCH ×2 (09:21→20:01)
[2019-07-22] MEDS: RISPERIDONE 1MG TABLET PO SCH (09:21)
[2019-07-22 12:00] VITALS: BP 128/74
[2019-07-22 16:00] VITALS: BP 127/73
[2019-07-22 20:00] VITALS: BP 137/81
[2019-07-23] VITALS: BP 137/84
[2019-07-23] MEDS: ACETYLCYSTEINE 100MG/ML 10% VIAL 4ML INH SCH (01:00)
[2019-07-23] MEDS: ALBUTEROL (0.083%) 2.5MG/3ML NEB HHN SCH ×7 (01:08→20:48)
[2019-07-23] MEDS: KETOROLAC 30MG/ML VIAL IV PRN ×4 (01:55→21:37)
[2019-07-23 04:00] VITALS: BP 120/64
[2019-07-23 08:00] VITALS: BP 141/87
[2019-07-23] MEDS: ENOXAPARIN 80MG/0.8ML SYR SUBCUT SCH ×2 (08:06→21:34)
[2019-07-23] MEDS: RISPERIDONE 1MG TABLET PO SCH (08:06)
[2019-07-23 12:00] VITALS: BP 101/69
[2019-07-23 16:00] VITALS: BP 107/77
[2019-07-23 20:00] VITALS: BP 157/92
[2019-07-23] MEDS: ZOLPIDEM TARTRATE 5MG TABLET PO PRN (21:34)
[2019-07-24] VITALS: BP 151/100
[2019-07-24 04:00] VITALS: BP 156/96
[2019-07-24 08:00] VITALS: BP 150/86
[2019-07-24] MEDS: ENOXAPARIN 80MG/0.8ML SYR SUBCUT SCH ×2 (08:11→20:31)
[2019-07-24] MEDS: RISPERIDONE 1MG TABLET PO SCH (08:11)
[2019-07-24] MEDS: KETOROLAC 30MG/ML VIAL IV PRN (08:12)
[2019-07-24] MEDS: ALBUTEROL (0.083%) 2.5MG/3ML NEB HHN SCH ×4 (09:41→20:15)
[2019-07-24 12:00] VITALS: BP 115/76
[2019-07-24 16:00] VITALS: BP 131/71
[2019-07-24] MEDS: ZOLPIDEM TARTRATE 5MG TABLET PO PRN (17:19)
[2019-07-24] MEDS ORDERED: ZOLPIDEM TARTRATE 5MG TABLET PO NR (17:30)
[2019-07-24 20:00] VITALS: BP 155/95
[2019-07-25] VITALS: BP 144/91
[2019-07-25] MEDS: ALBUTEROL (0.083%) 2.5MG/3ML NEB HHN SCH ×6 (01:18→21:26)
[2019-07-25] MEDS: KETOROLAC 30MG/ML VIAL IV PRN ×3 (03:52→13:29)
[2019-07-25 04:00] VITALS: BP 140/81
[2019-07-25 08:00] VITALS: BP 120/74
[2019-07-25] MEDS: RISPERIDONE 1MG TABLET PO SCH (08:58)
[2019-07-25] MEDS: ENOXAPARIN 80MG/0.8ML SYR SUBCUT SCH ×2 (08:58→21:36)
[2019-07-25 12:00] VITALS: BP 115/77
[2019-07-25 16:00] VITALS: BP 122/76
[2019-07-25 20:00] VITALS: BP 145/89
[2019-07-25] MEDS: ZOLPIDEM TARTRATE 5MG TABLET PO PRN (21:36)
[2019-07-26] VITALS: BP 139/93
[2019-07-26] MEDS: KETOROLAC 30MG/ML VIAL IV PRN ×3 (00:10→16:23)
[2019-07-26] MEDS: ALBUTEROL (0.083%) 2.5MG/3ML NEB HHN SCH ×6 (01:10→20:44)
[2019-07-26 04:00] VITALS: BP 138/93
[2019-07-26 08:00] VITALS: BP 117/70
[2019-07-26] MEDS: RISPERIDONE 1MG TABLET PO SCH (09:53)
[2019-07-26] MEDS: ENOXAPARIN 80MG/0.8ML SYR SUBCUT SCH ×2 (09:56→21:41)
[2019-07-26 12:00] VITALS: BP 117/70
[2019-07-26 16:00] VITALS: BP 120/75
[2019-07-26 20:00] VITALS: BP 141/87
[2019-07-26] MEDS: ZOLPIDEM TARTRATE 5MG TABLET PO PRN (21:41)
[2019-07-27] VITALS (8 sets, daily range): BP systolic 132–152; BP diastolic 75–89
[2019-07-27] MEDS: KETOROLAC 30MG/ML VIAL IV PRN ×4 (03:05→21:59)
[2019-07-27] MEDS: ALBUTEROL (0.083%) 2.5MG/3ML NEB HHN SCH ×6 (04:03→21:34)
[2019-07-27] MEDS: RISPERIDONE 1MG TABLET PO SCH (09:07)
[2019-07-27] MEDS: ENOXAPARIN 80MG/0.8ML SYR SUBCUT SCH ×2 (09:08→20:16)
[2019-07-27] MEDS ORDERED: ALBU18HF2 IH (15:25)
[2019-07-27] MEDS ORDERED: RISP1 MT (15:25)
[2019-07-27] MEDS ORDERED: FLUT1DIS3 INH (15:25)
[2019-07-27] MEDS: ZOLPIDEM TARTRATE 5MG TABLET PO PRN (20:16)
[2019-07-28] VITALS: BP 156/95
[2019-07-28] MEDS: ALBUTEROL (0.083%) 2.5MG/3ML NEB HHN SCH ×6 (01:02→22:43)
[2019-07-28 04:00] VITALS: BP 152/75
[2019-07-28] MEDS: KETOROLAC 30MG/ML VIAL IV PRN ×4 (05:04→23:37)
[2019-07-28 08:00] VITALS: BP 150/89
[2019-07-28] MEDS: RISPERIDONE 1MG TABLET PO SCH (08:31)
[2019-07-28] MEDS: ENOXAPARIN 80MG/0.8ML SYR SUBCUT SCH ×2 (08:32→20:17)
[2019-07-28 12:00] VITALS: BP 130/67
[2019-07-28 16:00] VITALS: BP 149/82
[2019-07-28 20:00] VITALS: BP 156/91
[2019-07-28] MEDS: ZOLPIDEM TARTRATE 5MG TABLET PO PRN (20:18)
[2019-07-29] VITALS: BP 157/81
[2019-07-29] MEDS: ALBUTEROL (0.083%) 2.5MG/3ML NEB HHN SCH ×6 (02:35→21:50)
[2019-07-29 04:00] VITALS: BP 126/66
[2019-07-29] MEDS: KETOROLAC 30MG/ML VIAL IV PRN ×3 (07:00→20:27)
[2019-07-29 08:00] VITALS: BP 152/90
[2019-07-29] MEDS: RISPERIDONE 1MG TABLET PO SCH (08:54)
[2019-07-29] MEDS: ENOXAPARIN 80MG/0.8ML SYR SUBCUT SCH ×2 (08:54→20:34)
[2019-07-29 12:00] VITALS: BP 150/91
[2019-07-29 16:00] VITALS: BP 151/89
[2019-07-29 20:00] VITALS: BP 147/84
[2019-07-29] MEDS: ZOLPIDEM TARTRATE 5MG TABLET PO PRN (20:27)
[2019-07-30] VITALS: BP 144/91
[2019-07-30] MEDS: ALBUTEROL (0.083%) 2.5MG/3ML NEB HHN SCH ×4 (01:17→19:41)
[2019-07-30] MEDS: KETOROLAC 30MG/ML VIAL IV PRN ×2 (02:02→09:30)
[2019-07-30 04:00] VITALS: BP 150/91
[2019-07-30 07:29] LABS: BASOPHILS % 0.2 % (0.0-2.0); EOSINOPHILS % 2.9 % (0.0-5.0); HEMATOCRIT. 30.1 % (42.0-52.0); HEMOGLOBIN. 10.1 g/dL (14.0-18.0); LYMPHOCYTES % 24.1 % (20.0-50.0); MEAN CORPUSCULAR HEMOGLOBIN 31.4 pg (28.0-32.0); MEAN CORPUSCULAR VOLUME 92.9 fL (80.0-94.0); MEAN PLATELET VOLUME 7.7 fl (7.4-10.4); MONOCYTES % 6.6 % (2.0-8.0); NEUTROPHILS % 66.2 % (40.0-76.0); PLATELET 393 x1000/uL (130-400); RED BLOOD CELL COUNT 3.23 mill/uL (4.7-6.1); RED CELL DISTRIBUTION WIDTH 16.8 % (11.6-14.6)
[2019-07-30 08:00] VITALS: BP 152/93
[2019-07-30] MEDS: ENOXAPARIN 80MG/0.8ML SYR SUBCUT SCH ×2 (08:35→20:00)
[2019-07-30] MEDS: RISPERIDONE 1MG TABLET PO SCH (08:36)
[2019-07-30 12:00] VITALS: BP 149/90
[2019-07-30 16:00] VITALS: BP 139/89
[2019-07-30 20:00] VITALS: BP 158/85
[2019-07-30] MEDS: ZOLPIDEM TARTRATE 5MG TABLET PO PRN (20:01)
[2019-07-31] VITALS: BP 156/88
[2019-07-31] MEDS: ALBUTEROL (0.083%) 2.5MG/3ML NEB HHN SCH ×6 (01:54→21:01)
[2019-07-31 04:00] VITALS: BP 149/85
[2019-07-31 08:00] VITALS: BP 136/79
[2019-07-31] MEDS: RISPERIDONE 1MG TABLET PO SCH (08:30)
[2019-07-31] MEDS: ENOXAPARIN 80MG/0.8ML SYR SUBCUT SCH ×2 (08:30→20:04)
[2019-07-31] MEDS ORDERED: KETOROLAC 30MG/ML VIAL IV PRN (10:30)
[2019-07-31 12:00] VITALS: BP 137/84
[2019-07-31 16:00] VITALS: BP 135/82
[2019-07-31] MEDS: HYDROCODONE/ACETAMINOPHEN 10/325MG TABLET PO PRN (16:10)
[2019-07-31 20:00] VITALS: BP 147/72
[2019-07-31] MEDS: ZOLPIDEM TARTRATE 5MG TABLET PO PRN (20:04)
[2019-08-01] VITALS: BP 148/85
[2019-08-01] MEDS: HYDROCODONE/ACETAMINOPHEN 10/325MG TABLET PO PRN ×4 (00:14→15:46)
[2019-08-01] MEDS: ALBUTEROL (0.083%) 2.5MG/3ML NEB HHN SCH ×4 (00:32→11:19)
[2019-08-01 04:00] VITALS: BP 143/83
[2019-08-01 06:36] VITALS: BP 143/83
[2019-08-01 08:00] VITALS: BP 134/75
[2019-08-01] MEDS: RISPERIDONE 1MG TABLET PO SCH (08:48)
[2019-08-01] MEDS: ENOXAPARIN 80MG/0.8ML SYR SUBCUT SCH (08:48)
[2019-08-01 16:00] VITALS: BP 129/71
== END 2019-08-01 16:20 | DRG 720 ==
LOC: ER 18:07 → EDBEDREQ 20:11 → 3WST 21:17 → EDBEDREQ 21:25 → ENRESERV 06-07 07:07 → MICUSO 06-07 09:37 → 5EST 06-17 11:35 → 6EST 06-19 12:08 → 3WST 06-19 16:07 → 6EST 06-20 17:10
PROVIDERS: ADMIT Internal Medicine; ATTEND Internal Medicine
PROC: 5A09357 Assistance with Respiratory Ventilation, Less than 24 Consecutive Hours, Continuous Positive Airway Pressure (ICD-10-PCS; 2019-06-06)
PROC: 5A1955Z Respiratory Ventilation, Greater than 96 Consecutive Hours (ICD-10-PCS; principal; 2019-06-07)
PROC: 5A09357 Assistance with Respiratory Ventilation, Less than 24 Consecutive Hours, Continuous Positive Airway Pressure (ICD-10-PCS; 2019-06-07)
PROC: 0BH17EZ Insertion of Endotracheal Airway into Trachea, Via Natural or Artificial Opening (ICD-10-PCS; 2019-06-07)
PROC: 05H533Z Insertion of Infusion Device into Right Subclavian Vein, Percutaneous Approach (ICD-10-PCS; 2019-06-07)
PROC: B546ZZA Ultrasonography of Right Subclavian Vein, Guidance (ICD-10-PCS; 2019-06-07)
PROC: 0DH63UZ Insertion of Feeding Device into Stomach, Percutaneous Approach (ICD-10-PCS; 2019-06-29)
PROC: 0DB68ZX Excision of Stomach, Via Natural or Artificial Opening Endoscopic, Diagnostic (ICD-10-PCS; 2019-06-29)
DX: A41.9 Sepsis, unspecified organism (principal); J96.01 Acute respiratory failure with hypoxia; I26.99 Other pulmonary embolism without acute cor pulmonale; R65.21 Severe sepsis with septic shock; E43 Unspecified severe protein-calorie malnutrition; J18.0 Bronchopneumonia, unspecified organism; Z99.11 Dependence on respirator [ventilator] status; G93.40 Encephalopathy, unspecified; J43.9 Emphysema, unspecified; J84.10 Pulmonary fibrosis, unspecified; F03.90 Unspecified dementia, unspecified severity, without behavioral disturbance, psychotic disturbance, mood disturbance, and anxiety; B19.20 Unspecified viral hepatitis C without hepatic coma; E87.6 Hypokalemia; F11.20 Opioid dependence, uncomplicated; F17.210 Nicotine dependence, cigarettes, uncomplicated; J92.9 Pleural plaque without asbestos; J98.4 Other disorders of lung; K29.70 Gastritis, unspecified, without bleeding; R13.10 Dysphagia, unspecified; S51.811A Laceration without foreign body of right forearm, initial encounter; S61.511A Laceration without foreign body of right wrist, initial encounter; S51.812A Laceration without foreign body of left forearm, initial encounter; S70.321A Blister (nonthermal), right thigh, initial encounter; Z66 Do not resuscitate; X58.XXXA Exposure to other specified factors, initial encounter; Y93.89 Activity, other specified; Y92.89 Other specified places as the place of occurrence of the external cause; Y99.8 Other external cause status; Z78.1 Physical restraint status; Z79.51 Long term (current) use of inhaled steroids; Z68.25 Body mass index [BMI] 25.0-25.9, adult
CPT/HCPCS: 36415; 36600; 71045; 71275; 74018; 76937; 80048; 80053; 80202; 80305; 81003; 82375; 82805; 82962; 83605; 83735; 83880; 84100; 84132; 84134; 84145; 84478; 84484; 85025; 85027; 86635; 86705; 86709; 86803; 87070; 87340; 87389; 87449; 87804; 88305; 88312; 88313; 92610; 93005; 93306; 94003; 94640; 94660; 94667; 96365; 97116; 97162; 97164; 97167; 97530; 97535; 99152; 99291; A6261; C1725; C9113; J0456; J0690; J1630; J1650; J1885; J1956; J2060; J2250; J2270; J2405; J2543; J2704; J2765; J3010; J3370; J3480; J3490; J7030; J7040; J7042; J7060; J7608; J7611; J7620; Q9967; G0500